=== PATIENT | male | born 1940 | race Caucasian/White ===

== ENCOUNTER 2017-03-29 11:07 | Observation (INO) ==
--- NOTE | 2017-03-29 11:17 | Emergency Department Note ---
Disposition Clinical Impression: Altered mental status Qualifiers: Altered mental status type: delirium Qualified Code(s): R41.0 - Disorientation , unspecified Disposition: Admitted As Inpatient Condition: Fair Time of Disposition: 16:52 General Adult HPI - General Chief complaint: ED Neuro Symptoms/Deficit Stated complaint: Slurred speech, L sided weakness Time Seen by Provider: 03/29/17 11:13 Source: EMS Mode of arrival: EMS Limitations: altered mental status Nursing Notes Reviewed: Yes Vital Signs Reviewed: Yes - History of Present Illness HPI Narrative: 76-year-old male with history of dementia who is baseline nonverbal to mild interaction, [facility] emergency department with the concerned about change in his mental status and swelling in his feet. The states that this started roughly one week ago and has progressively worsened. The patient's states she called EMS today after being told by PCP to come to the emergency department for swelling in his feet as well as the patient slumping over to his left side. EMS initially called a "stroke alert" due to patient's left-sided weakness. The states this has been ongoing for 3-4 days now. The patient's face has old and dried food on the left side. Apparently the takes care of her at home. The patient denies any specific complaints but again at baseline he is not interactive. The patient's denies any other new symptoms. No fevers that are noted. The patient has been eating at his baseline. The patient only takes one medication, olanzapine. Glucose in route was 179. Onset (ago): unknown Pain Scale: 0 Improves with: nothing Worsens with: nothing Associated symptoms: Reports: denies other symptoms Treatments Prior to Arrival: none - Related Data Home Medications Medication Instructions Recorded Confirmed OLANZapine [Olanzapine Odt] 10 mg PO BID 03/29/17 03/29/17 Allergies Allergy/AdvReac Type Severity Reaction Status Date / Time No Known Allergies Allergy Verified 03/29/17 12:40 Limitations: ROS unobtainable due to patients medical condition Past Medical History - Past Medical History Attestation: Yes The following information was validated with the patient. Source: patient Medical history: Reports: dementia Surgical history: Reports: no surgical history Psychiatric history: Reports: no psych history - Social History Smoking Status: Unknown if ever smoked Smokeless Tobacco Status: No Alcohol use: Reports: unknown Drug use: Reports: unknown Physical Exam Patient is altered in his mental status. He has dried food on the left side of his face. The patient is sitting up in the bed attempting to get out of the bed at this time. He is apparently at his baseline according to . The patient is sitting up and not truly interacting with anyone. He is answering some questions but is incomprehensible in his answers. - General Limitations: altered mental status General appearance: alert - Head Head exam: atraumatic, normocephalic, normal inspection - ENT ENT exam: normal exam, normal oropharynx, mucous membranes moist - Neck Neck exam: Present: normal inspection, full ROM, trachea midline - Respiratory Respiratory exam: Present: normal lung sounds bilaterally - Cardiovascular Cardiovascular exam: Present: regular rate, normal rhythm, normal heart sounds - Abdominal Exam Abdominal exam: Present: soft, Non-Tender. Absent: tenderness, distention, guarding, rebound, rigidity - Extremities Exam Extremities exam: Present: normal inspection, full ROM. Absent: tenderness, pedal edema - Back Exam Back exam: Present: normal inspection, full ROM. Absent: tenderness - Neurological Exam Neurological exam: Present: alert, CN II-XII intact - Expanded Neurological Exam Speech: Present: expressive aphasia Motor strength - LUE: 4/5 Motor strength - RUE: 5/5 Motor strength - LLE: 4/5 Motor strength - RLE: 5/5 Coma Scale Eye Opening: Spontaneous Coma Scale Motor Response: Obeys Commands Coma Scale Verbal Response: Incomprehensible Coma Scale Total: 12 - Skin Skin exam: Present: warm Course Vital Signs Temperature 97.9 F 03/29/17 11:09 Pulse Rate 68 03/29/17 11:09 Respiratory Rate 18 03/29/17 11:09 Blood Pressure 123/100 03/29/17 11:09 O2 Sat by Pulse Oximetry 98 03/29/17 11:09 Temperature 97.3 F L 03/29/17 16:35 Pulse Rate 70 03/29/17 16:35 Respiratory Rate 18 03/29/17 16:35 Blood Pressure 157/92 03/29/17 16:35 O2 Sat by Pulse Oximetry 93 03/29/17 16:35 Oxygen Delivery Oxygen Delivery Room Air Medical Decision Making - Lab Data Result diagrams: 03/29/17 11:32 03/29/17 11:32 Lab Results 03/29/17 03/29/1717 Range/Units 11:18 11:32 11:32 WBC 4.8 (4.3-11.1) K/mcL RBC 5.62 H (4.19-5.50) M/mcL Hgb 16.0 (12.9-16.9) g/dL Hct 48.7 (37.5-50.1) % MCV 86.7 (83.0-100.0) fL MCH 28.5 (28.0-33.3) pg MCHC 32.9 (31.6-35.5) g/dL RDW 13.4 (11.5-14.5) % Plt Count 254 (140-400) K/mcL MPV 8.8 L (9.4-12.4) fL Immature Gran % 0.2 (0-4) % Seg Neutrophils % 56.9 % Lymphocytes % 32.7 % Monocytes % 7.1 % Eosinophils % 2.3 % Basophils % 0.8 % Neutrophils # 2.7 (1.6-8.9) K/mcL Lymphocytes # 1.6 (0.6-4.6) K/mcL Monocytes # 0.3 (0.0-1.3) K/mcL Eosinophils # 0.1 (0.0-0.6) K/mcL Basophils # 0.0 (0.0-0.2) K/mcL Immature Plt Fraction 1.8 (1.1-6.1) % Sodium 144 (136-145) mEq/L Potassium 3.4 L (3.5-4.5) mEq/L Chloride 105 (98-109) mEq/L Carbon Dioxide 33 H (19-29) mEq/L BUN 10 (8-26) mg/dL Creatinine 1.12 (0.72-1.25) mg/dL Est GFR ( Amer) > 60 (> 60) Est GFR (Non-Af Amer) > 60 (> 60) BUN/Creatinine Ratio 9 (6-26) Glucose 91 (70-99) mg/dL POC Glucose 149 H (58-89) Calculated Osmolality 297 (280-300) Calcium 9.3 (8.6-10.8) mg/dL Total Bilirubin 0.9 (0.2-1.2) mg/dL AST 22 (5-34) Units/L ALT 12 (0-55) Units/L Alkaline Phosphatase 88 (38-126) Units/L Creatine Kinase 310 H (30-200) Units/L Troponin I (0-0.03) ng/mL Serum Total Protein 7.3 (6.0-8.3) g/dL Albumin 3.8 (3.5-5.0) g/dL Globulin 3.5 (2.4-3.5) g/dL Albumin/Globulin Ratio 1.1 (1.1-2.2) Urine Color (Yellow) Urine Clarity (Clear) Urine pH (5.0-8.0) pH Units Ur Specific [place] (1.010-1.025) Urine Protein (Neg-Trace) mg/dL Urine Glucose (UA) (Normal) mg/dL Urine Ketones (Negative) mg/dL Urine Blood (Negative) Urine Nitrite (Negative) Urine Bilirubin (Negative) Urine Urobilinogen (Normal) mg/dL Ur Leukocyte Esterase (Negative) Urine Microscopic RBC (0-3) per hpf Urine Microscopic WBC (0-3) per hpf Ur Squamous Epith Cells (None-Few) per lpf Urine Bacteria (None-Few) per hpf Hyaline Casts (None-Few) per lpf Ur Culture Indicated? (NO) 03/29/17 03/29/17 Range/Units 11:32 13:45 WBC (4.3-11.1) K/mcL RBC (4.19-5.50) M/mcL Hgb (12.9-16.9) g/dL Hct (37.5-50.1) % MCV (83.0-100.0) fL MCH (28.0-33.3) pg MCHC (31.6-35.5) g/dL RDW (11.5-14.5) % Plt Count (140-400) K/mcL MPV (9.4-12.4) fL Immature Gran % (0-4) % Seg Neutrophils % % Lymphocytes % % Monocytes % % Eosinophils % % Basophils % % Neutrophils # (1.6-8.9) K/mcL Lymphocytes # (0.6-4.6) K/mcL Monocytes # (0.0-1.3) K/mcL Eosinophils # (0.0-0.6) K/mcL Basophils # (0.0-0.2) K/mcL Immature Plt Fraction (1.1-6.1) % Sodium (136-145) mEq/L Potassium (3.5-4.5) mEq/L Chloride (98-109) mEq/L Carbon Dioxide (19-29) mEq/L BUN (8-26) mg/dL Creatinine (0.72-1.25) mg/dL Est GFR ( Amer) (> 60) Est GFR (Non-Af Amer) (> 60) BUN/Creatinine Ratio (6-26) Glucose (70-99) mg/dL POC Glucose (58-89) Calculated Osmolality (280-300) Calcium (8.6-10.8) mg/dL Total Bilirubin (0.2-1.2) mg/dL AST (5-34) Units/L ALT (0-55) Units/L Alkaline Phosphatase (38-126) Units/L Creatine Kinase (30-200) Units/L Troponin I 0.01 (0-0.03) ng/mL Serum Total Protein (6.0-8.3) g/dL Albumin (3.5-5.0) g/dL Globulin (2.4-3.5) g/dL Albumin/Globulin Ratio (1.1-2.2) Urine Color [place] A (Yellow) Urine Clarity Cloudy A (Clear) Urine pH 5.5 (5.0-8.0) pH Units Ur Specific [place] > 1.030 H (1.010-1.025) Urine Protein Trace (Neg-Trace) mg/dL Urine Glucose (UA) Normal (Normal) mg/dL Urine Ketones Trace H (Negative) mg/dL Urine Blood Negative (Negative) Urine Nitrite Negative (Negative) Urine Bilirubin Moderate H (Negative) Urine Urobilinogen Normal (Normal) mg/dL Ur Leukocyte Esterase Negative (Negative) Urine Microscopic RBC 0-3 (0-3) per hpf Urine Microscopic WBC 0-3 (0-3) per hpf Ur Squamous Epith Cells Many H (None-Few) per lpf Urine Bacteria None Seen (None-Few) per hpf Hyaline Casts None Seen (None-Few) per lpf Ur Culture Indicated? NO (NO) - EKG Data EKG #1 EKG attestation: Yes I reviewed and interpreted this EKG. EKG results narrative: Heart rate 63 bpm. IN interval 207 ms. QTc 425 ms. Normal axis. Normal sinus rhythm. No ST elevation or ST depression noted. EKG identical to EKG from 12/07/2015. No acute changes noted. Attestation Statement - Attestation Attestation: Patient was seen with resident physician. I reviewed the history, physical, assessment and plan, and agree with the findings. I also personally evaluated this patient and had [id number] time with this patient. 76-year-old male who has become increasingly nonverbal last several days. Patient has history of dementia and his is his caregiver. She says that he has not been acting as he usually has the last couple of days. Patient himself is unable to provide any history at all. He does follow some commands, but verbally he is unable to communicate. On examination vital signs food on his jimenez. Heart regular rhythm and rate. Lungs were clear. Abdomen soft and nontender. Extremities unremarkable. Neurologically patient is alert and follows commands to squeeze hands and also move feet. ED course will workup patient for neurologic problems as well as for sepsis. We will disposition according to findings of the workup. Workup was essentially unremarkable, head CT scan did not show acute abnormality, there are also no significant abnormalities on blood testing. Patient continued with current mental status long the ED vital signs are stable. Anticipate likely admission as I do not think his family can care for him at this time. Hospitalist was notified as to the need for admission and the patient was admitted to the hospital for further evaluation and treatment. Agree with the resident physician assessment plan.
[2017-03-29 11:40] LABS: Basophils % 0.8 %; Eosinophils # 0.1 K/mcL (0.0-0.6); Eosinophils % 2.3 %; Hematocrit 48.7 % (37.5-50.1); Immature Granulocytes % 0.2 % (0-4); Immature Platelets 1.8 % (1.1-6.1); Lymphocytes # 1.6 K/mcL (0.6-4.6); Lymphocytes % 32.7 %; Mean Corpuscular HGB Conc 32.9 g/dL (31.6-35.5); Mean Corpuscular Hemoglobin 28.5 pg (28.0-33.3); Mean Corpuscular Volume 86.7 fL (83.0-100.0); Mean Platelet Volume 8.8 fL (9.4-12.4); Monocytes # 0.3 K/mcL (0.0-1.3); Monocytes % 7.1 %; Neutrophils # 2.7 K/mcL (1.6-8.9); Platelet Count 254 K/mcL (140-400); Red Blood Count 5.62 M/mcL (4.19-5.50); Red Cell Distribution Width 13.4 % (11.5-14.5); Segmented Neutrophils % 56.9 %
[2017-03-29 11:52] LABS: Alanine Aminotransferase 12 Units/L (0-55); Albumin 3.8 g/dL (3.5-5.0); Albumin/Globulin Ratio 1.1 (1.1-2.2); Alkaline Phosphatase 88 Units/L (38-126); Aspartate Amino Transferase 22 Units/L (5-34); BUN/Creatinine Ratio 9 (6-26); Bilirubin,Total 0.9 mg/dL (0.2-1.2); Blood Urea Nitrogen 10 mg/dL (8-26); Calcium 9.3 mg/dL (8.6-10.8); Carbon Dioxide 33 mEq/L (19-29); Chloride 105 mEq/L (98-109); Creatine Kinase 310 Units/L (30-200); Globulin 3.5 g/dL (2.4-3.5); Glucose 91 mg/dL (70-99); Osmolality,Calculated 297 (280-300); Potassium 3.4 mEq/L (3.5-4.5); Sodium 144 mEq/L (136-145); Total Protein 7.3 g/dL (6.0-8.3); eGFR For African Americans > 60 (> 60); eGFR For Non-African Americans > 60 (> 60)
[2017-03-29 13:56] LABS: Bilirubin,Urine Moderate (Negative); Blood,Urine Negative (Negative); Clarity,Urine Cloudy (Clear); Color,Urine Orange (Yellow); Glucose,Urine (UA) Normal (Normal); Ketones,Urine Trace mg/dL (Negative); Leukocyte Esterase,Urine Negative (Negative); Nitrite,Urine Negative (Negative); PH,Urine 5.5 pH Units (5.0-8.0); Protein,Urine Trace mg/dL (Neg-Trace); Specific Gravity,Urine > 1.030 (1.010-1.025); Urobilinogen,Urine Normal (Normal)
[2017-03-29 14:00] LABS: Bacteria,Urine None Seen per hpf (None-Few); Hyaline Casts,Urine None Seen per lpf (None-Few); RBC,Urine 0-3 per hpf (0-3); Squamous Epithelial Cell,Urine Many per lpf (None-Few); WBC,Urine 0-3 per hpf (0-3)
--- NOTE | 2017-03-29 14:59 | Internal Med History&Physical ---
Date of Encounter: 03/29/17 Time of Encounter: 14:42 Assessment and Plan (1) Alzheimer's dementia with behavioral disturbance Current visit: No Status: Acute Patient is at baseline mental status with poor responses to verbal commands. He takes Olanzapine 10mg PO BID. Will continue home medication. He was brought to the emergency department with concerns of possible stroke symptoms which were resolved upon examination. EKG reviewed and demonstrated normal sinus rhythm, Brain CT without significant or acute findings. - Significant family hx of Alzheimer's dementia - Patient demonstrating signs of Parkinson's but without formal diagnosis. - Qualifiers: Alzheimer's disease onset: unspecified onset Qualified Code(s): G30.8 - Other Alzheimer's disease; F02.81 - Dementia in other diseases classified elsewhere with behavioral disturbance (2) Constipation Current visit: Yes Status: Acute Patient has been demonsrating symptoms of constipation over the past few days per family provided hx. - Will place on scheduled Senna. Qualifiers: Qualified Code(s): K59.00 - Constipation, unspecified (3) Hypokalemia Current visit: Yes Status: Acute Potassium 3.4. Patient without N/V/D or other identified causes for potassium loss. Plan: - 40meq Potassium PO once. (4) Hyperglycemia Current visit: Yes Status: Acute Glucose elevated x1 reading. Patient does not have a hx of DM. Plan: - follow glucose levels with am labs. If findings are significant consider treating with subcutaneous insulin. (5) DVT prophylaxis Current visit: No Status: Acute Lovenox 40mg SQ daily Internal Medicine - H&P: HPI Chief complaint: left sided weakness Admitted From: Emergency Dept Plans for Post Hospital Care: Home History of present illness: Mr. Ozuna is a 76 year old male with hx of Alzheimer dementia was brought to the emergency department with worsening of mental status, drooling and left sided leaning. All hx collected from and daughter do to patients mental status. His symptoms started this morning when he started drooling and demonstrated leaning to the left. Over the past few days he has been less compliant with verbal commands and demonstrated worsening of his mental status. At baseline he is not very verbal and poor to follow commands. He did not follow any commands with the addition of his symptoms that worried his and daughter and prompted them to have him seen in the emergency department. He continues to have his normal appetite, but has had some constipation and urinating once to twice per day. His also noticed some swelling in his feet this morning which was concerning to her. Upon examination today his says he is back to his baseline and his swelling has resolved. He is tolerating po intake. The family had no other concerns at this time. He does not have a primary care provider and receives his only medication from his psychiatrist. His says that overall he is pretty healthy. When discussing resuscitation status the patient would like full code at this time and defers all further interventions and care to the current advanced directive. Past Med Surg Social Fam HX - Past Medical History Medical history: dementia Psychiatric history: no psych history - Past Surgical History Surgical History: no surgical history - Social History Smoking Status: Unknown if ever smoked Smokeless Tobacco Status: No Alcohol use: unknown Drug use: unknown - Family History Sister Hx Family Cardiac Disorders: Yes Hx Family Endocrine Disorder: Yes (DM) Hx Family Neurologic Disorders: Yes (alz) Brother Hx Family Cardiac Disorders: Yes Internal Medicine - H&P: Meds OLANZapine [Olanzapine Odt] 10 mg PO BID 03/29/17 [History] Allergies No Known Allergies Allergy (Verified 03/29/17 12:40) ROS unobtainable: due to mental status All Systems PM: A 10-system review of systems was performed and is negative for pertinent findings except as documented above in the HPI. - Constitutional Vitals: Temp Pulse Resp BP Pulse Ox 97.9 F 68 18 123/100 98 03/29/17 11:09 03/29/17 11:09 03/29/17 11:09 03/29/17 11:09 03/29/17 11:09 General appearance: Present: A&O X 0 - Head Head exam: Present: atraumatic, normocephalic - Eye Eye exam: Present: PERRL, conjuntiva pink, sclera anicteric Pupils: Present: PERRL - ENT ENT exam: Present: mucous membranes dry - Neck Neck exam general surgery: Present: supple, trachea midline. Absent: lymphadenopathy - Respiratory Respiratory exam: Present: CTAB. Absent: accessory muscle use, rales, rhonchi, wheezes - Cardiovascular Cardiovascular exam: Present: RRR, +S1, +S2. Absent: diastolic murmur, gallop, rubs, systolic murmur - GI/Abdominal GI/Abdominal exam: Present: normal bowel sounds, soft, no peritoneal signs. Absent: distended, tenderness - Extremities Exam Extremities exam: Present: warm, radial pulses palpable and symetrical. Absent : calf tenderness, cyanotic, pedal edema - Neurological Exam Neurological exam: Present: alert, no focal deficits, strengths equal and symetr throughout. Absent: pronater drift, facial droop Additional comments: Patient has repetitive movements of the lower jaw and bilateral upper extremities. negative for cogwheel rigidity. - Psychiatric Psychiatric exam: Present: flat affect - Skin Skin exam: Present: dry, intact Internal Med - H&P Results - Labs CBC & Chem 7: 03/29/17 11:32 03/29/17 11:32 Labs: Short CBC 03/29/17 Range/Units 11:32 WBC 4.8 (4.3-11.1) K/mcL Hgb 16.0 (12.9-16.9) g/dL Hct 48.7 (37.5-50.1) % Plt Count 254 (140-400) K/mcL Neutrophils # 2.7 (1.6-8.9) K/mcL BMP 03/29/17 11:32 Sodium 144 Potassium 3.4 L Chloride 105 Carbon Dioxide 33 H BUN 10 Creatinine 1.12 Glucose 91 Calcium 9.3 Cardiac Enzymes 03/29/17 Range/Units 11:32 Troponin I 0.01 (0-0.03) ng/mL Liver Function 03/29/17 Range/Units 11:32 Total Bilirubin 0.9 (0.2-1.2) mg/dL AST 22 (5-34) Units/L ALT 12 (0-55) Units/L Alkaline Phosphatase 88 (38-126) Units/L Albumin 3.8 (3.5-5.0) g/dL Urine 03/29/17 Range/Units 13:45 Urine Color [place] A (Yellow) Urine Clarity Cloudy A (Clear) Urine pH 5.5 (5.0-8.0) pH Units Ur Specific [place] > 1.030 H (1.010-1.025) Urine Protein Trace (Neg-Trace) mg/dL Urine Glucose (UA) Normal (Normal) mg/dL - Impressions ITS Impressions Chest X-Ray 03/29/17 11:13 IMPRESSION: 1. Lower lung volumes with increased bibasilar atelectasis. D/ / Juan Alberto Mendoza MD / Juan Alberto Mendoza MD Interpreting Provider: Juan Alberto Mendoza MD Head CT 03/29/17 11:13 IMPRESSION: 1. No acute intracranial abnormality. 2. Mild global atrophy. D/ / 03/29/2017 12:02:23 Power Palmer MD / haile Interpreting Provider: Power Palmer MD
--- NOTE | 2017-03-29 15:05 | Event Note ---
Date of Encounter: 03/29/17 Time of Encounter: 15:05 Patient seen and examined with medical assembly. Agree with assessment and plan
[2017-03-29] MEDS ORDERED: Ondansetron ODT 4 MG TAB.RAPDIS SL PRN (15:34)
[2017-03-29] MEDS ORDERED: Naloxone 0.4 MG/ML INJ IVP PRN (15:34)
[2017-03-29] MEDS ORDERED: Acetaminophen 325 MG TABLET PO PRN (15:34)
[2017-03-29] MEDS: Sennosides/Docusate Sodium TABLET PO SCH (21:53)
[2017-03-29] MEDS: OLANZapine 10 MG TAB.RAPDIS PO SCH (21:53)
[2017-03-30] MEDS: *HR* Enoxaparin 40 MG/0.4 ML SYRINGE SQ SCH (05:30)
[2017-03-30 06:15] LABS: Basophils % 0.8 %; Eosinophils # 0.2 K/mcL (0.0-0.6); Eosinophils % 3.5 %; Hematocrit 46.9 % (37.5-50.1); Hemoglobin 15.4 g/dL (12.9-16.9); Immature Granulocytes % 0.2 % (0-4); Lymphocytes # 1.9 K/mcL (0.6-4.6); Mean Corpuscular HGB Conc 32.8 g/dL (31.6-35.5); Mean Corpuscular Hemoglobin 27.9 pg (28.0-33.3); Mean Corpuscular Volume 85.1 fL (83.0-100.0); Mean Platelet Volume 8.8 fL (9.4-12.4); Monocytes # 0.4 K/mcL (0.0-1.3); Monocytes % 7.8 %; Neutrophils # 2.7 K/mcL (1.6-8.9); Platelet Count 216 K/mcL (140-400); Red Blood Count 5.51 M/mcL (4.19-5.50); Red Cell Distribution Width 13.2 % (11.5-14.5); Segmented Neutrophils % 51.7 %
[2017-03-30 06:26] LABS: BUN/Creatinine Ratio 12 (6-26); Blood Urea Nitrogen 10 mg/dL (8-26); Calcium 8.9 mg/dL (8.6-10.8); Carbon Dioxide 31 mEq/L (19-29); Chloride 106 mEq/L (98-109); Glucose 94 mg/dL (70-99); Osmolality,Calculated 295 (280-300); Potassium 3.8 mEq/L (3.5-4.5); Sodium 143 mEq/L (136-145); eGFR For African Americans > 60 (> 60); eGFR For Non-African Americans > 60 (> 60)
[2017-03-30] MEDS: OLANZapine 10 MG TAB.RAPDIS PO SCH ×3 (09:28→20:29)
[2017-03-30] MEDS: Sennosides/Docusate Sodium TABLET PO SCH ×3 (09:28→20:29)
--- NOTE | 2017-03-30 13:45 | Internal Med Progress Note ---
Date of Encounter: 03/30/17 Time of Encounter: 13:42 - Assessment and plan (1) Altered mental status Current Visit: Yes Status: Chronic Assessment and plan: as per the family, for barbara last week, his head was drooping down, he was drooling , unable to sit upright and leaning to one side and speech is slurred. At the time of the bedside evaluation this morning, the family reports that he is back to his baseline, CT head done at ED does not show any signs of acute stroke. No other focal deficits at this time Patient has baseline Alzheimer's dementia, seen by neurology last year he follows with psychiatry for symptomatic behavioral treatment. Qualifiers: Altered mental status type: delirium Qualified Code(s): R41.0 - Disorientation, unspecified (2) Alzheimer's dementia with behavioral disturbance Current Visit: No Status: Acute Assessment and plan: HE was seen by neurology 2015 and was told that he has developing alzhemier's dementia. his treatment is basically symptomatic depending on behavioral problems he follows with psych outside, he has been on zyprexa 5 mg daily which was recently increased to 10mg bid. will allow psych to adjust his meds for his psychosis. will need a PCP arranged before DC. family is adamant about not sending the patient to NH or rehab. Qualifiers: Alzheimer's disease onset: unspecified onset Qualified Code(s): G30.8 - Other Alzheimer's disease; F02.81 - Dementia in other diseases classified elsewhere with behavioral disturbance - Subjective Interval history: Patient admitted for bilateral lower leg swelling and signs concerning for CVA. Seen at the bedside, patient pleasantly demented at baseline, from home, taken care of by the and the daughter. as per the family, he appears to be at his baseline now and does not have any focal defecits - Constitutional Vitals: Temp Pulse Resp BP Pulse Ox 97.6 F 65 18 115/71 93 03/30/17 11:48 03/30/17 11:48 03/30/17 11:48 03/30/17 11:48 03/30/17 11:48 General appearance: Present: A&O X 0, disheveled Exam: opens eyes, non verbal and does not follow commands. - Head Head exam: Present: atraumatic, normocephalic - Eye Eye exam: Present: PERRL, conjuntiva pink, sclera anicteric Pupils: Present: PERRL - ENT ENT exam: Present: mucous membranes dry - Neck Neck exam general surgery: Present: supple, trachea midline. Absent: lymphadenopathy - Respiratory Respiratory exam: Present: CTAB. Absent: accessory muscle use, rales, rhonchi, wheezes - Cardiovascular Cardiovascular exam: Present: RRR, +S1, +S2. Absent: diastolic murmur, gallop, rubs, systolic murmur - GI/Abdominal GI/Abdominal exam: Present: normal bowel sounds, soft, no peritoneal signs. Absent: distended, tenderness - Extremities Exam Extremities exam: Present: warm, radial pulses palpable and symetrical. Absent : calf tenderness, cyanotic, pedal edema - Neurological Exam Neurological exam: Present: alert, no focal deficits, strengths equal and symetr throughout. Absent: pronater drift, facial droop Additional comments: Patient has repetitive movements of the lower jaw and bilateral upper extremities. negative for cogwheel rigidity. - Psychiatric Psychiatric exam: Present: flat affect - Skin Skin exam: Present: dry, intact Internal Medicine: Result - Labs CBC & Chem 7: 03/30/17 05:54 03/30/17 05:54 Labs: Short CBC 03/30/17 Range/Units 05:54 WBC 5.2 (4.3-11.1) K/mcL Hgb 15.4 (12.9-16.9) g/dL Hct 46.9 (37.5-50.1) % Plt Count 216 (140-400) K/mcL Neutrophils # 2.7 (1.6-8.9) K/mcL BMP 03/30/17 05:54 Sodium 143 Potassium 3.8 Chloride 106 Carbon Dioxide 31 H BUN 10 Creatinine 0.86 Glucose 94 Calcium 8.9 Consult Discharge Plan - Plan Referrals: NO,PCP [Primary Care Provider] -
[2017-03-31] MEDS: *HR* Enoxaparin 40 MG/0.4 ML SYRINGE SQ SCH (05:24)
[2017-03-31] MEDS: OLANZapine 10 MG TAB.RAPDIS PO SCH ×2 (09:46→20:41)
[2017-03-31] MEDS: Sennosides/Docusate Sodium TABLET PO SCH ×2 (09:47→20:41)
[2017-03-31] MEDS: 0.9 % Sodium Chloride 1,000 ML IVC SCH (14:11)
--- NOTE | 2017-03-31 15:19 | Internal Med Progress Note ---
Date of Encounter: 03/31/17 Time of Encounter: 15:16 - Assessment and plan (1) Altered mental status Current Visit: Yes Status: Chronic Assessment and plan: as per the family, for barbara last week, his head was drooping down, he was drooling , unable to sit upright and leaning to one side and speech is slurred. At the time of the bedside evaluation this morning, the family reports that he is back to his baseline, CT head done at ED does not show any signs of acute stroke. No other focal deficits at this time Patient has baseline Alzheimer's dementia, seen by neurology last year he follows with psychiatry for symptomatic behavioral treatment. he was heber zyprexa 10mg bid,suspect his symptoms from possible high dose of zyprexa, will lower to 5mg bid today and observe. tried reaching Joi Espinoza who is his psychiatrist without success. Qualifiers: Altered mental status type: delirium Qualified Code(s): R41.0 - Disorientation, unspecified (2) Alzheimer's dementia with behavioral disturbance Current Visit: No Status: Acute Assessment and plan: HE was seen by neurology 2016 and was told that he has developing alzhemier's dementia. his treatment is basically symptomatic depending on behavioral problems he follows with psych outside, he has been on zyprexa 10mg bid. will dcerease his zyprexa to 5mg bid at this time. will need a PCP arranged before DC. family is adamant about not sending the patient to NH or rehab. Qualifiers: Alzheimer's disease onset: unspecified onset Qualified Code(s): G30.8 - Other Alzheimer's disease; F02.81 - Dementia in other diseases classified elsewhere with behavioral disturbance - Subjective Interval history: Patient admitted for bilateral lower leg swelling and signs concerning for CVA. was noted to be very drowsy in the morning. much aawake now and ate his lunch. - Constitutional Vitals: Temp Pulse Resp BP Pulse Ox 98.2 F 63 17 126/69 96 03/31/17 11:26 03/31/17 11:26 03/31/17 11:26 03/31/17 11:26 03/31/17 11:26 General appearance: Present: A&O X 0, disheveled Exam: Exam: opens eyes, non verbal and does not follow commands. - Head Head exam: Present: atraumatic, normocephalic - Eye Eye exam: Present: PERRL, conjuntiva pink, sclera anicteric Pupils: Present: PERRL - ENT ENT exam: Present: mucous membranes dry - Neck Neck exam general surgery: Present: supple, trachea midline. Absent: lymphadenopathy - Respiratory Respiratory exam: Present: CTAB. Absent: accessory muscle use, rales, rhonchi, wheezes - Cardiovascular Cardiovascular exam: Present: RRR, +S1, +S2. Absent: diastolic murmur, gallop, rubs, systolic murmur - GI/Abdominal GI/Abdominal exam: Present: normal bowel sounds, soft, no peritoneal signs. Absent: distended, tenderness - Extremities Exam Extremities exam: Present: warm, radial pulses palpable and symetrical. Absent : calf tenderness, cyanotic, pedal edema - Neurological Exam Neurological exam: Present: alert, no focal deficits, strengths equal and symetr throughout. Absent: pronater drift, facial droop Additional comments: Patient has repetitive movements of the lower jaw and bilateral upper extremities. negative for cogwheel rigidity. - Psychiatric Psychiatric exam: Present: flat affect - Skin Skin exam: Present: dry, intact Internal Medicine: Result - Labs CBC & Chem 7: 03/30/17 05:54 03/30/17 05:54 Consult Discharge Plan - Plan Referrals: Sebastian Nelson DO [Non-Partnered Physician] - (Patient will call after discharge, office will then set him up as a new patient and a hospital f/u. Family aware of arrangement. Thank you)
--- NOTE | 2017-03-31 15:28 | Electrocardiograph Report ---
[facility] Test Date: 2017-03-29 Pat Name: Jose Ozuna Department: 105 Room: 3A63 Gender: M Adaptive Physical Education Specialist: : 1940 Requested By: Solomon Tuttle Order Number: [id number] Reading MD: Dave Marte MD Measurements Intervals [place] Rate: 63 P: 68 [place]: 207 QRS: -58 QRSD: 94 T: 18 QT: 417 QTc: 425 Interpretive Statements SINUS RHYTHM PATTERN CONSISTENT WITH PULMONARY DISEASE LEFT ANTERIOR FASCICULAR BLOCK [QRS AXIS <= -45, QR IN I, RS IN II] Electronically Signed On 03-31-2017 15:27:19 EDT by Dave Marte MD
[2017-04-01] MEDS: 0.9 % Sodium Chloride 1,000 ML IVC SCH ×2 (01:17→10:37)
[2017-04-01] MEDS: *HR* Enoxaparin 40 MG/0.4 ML SYRINGE SQ SCH (06:37)
[2017-04-01 09:03] LABS: Basophils % 0.8 %; Eosinophils # 0.2 K/mcL (0.0-0.6); Eosinophils % 3.1 %; Hematocrit 45.9 % (37.5-50.1); Hemoglobin 15.2 g/dL (12.9-16.9); Immature Granulocytes % 0.4 % (0-4); Lymphocytes # 1.4 K/mcL (0.6-4.6); Mean Corpuscular HGB Conc 33.1 g/dL (31.6-35.5); Mean Corpuscular Hemoglobin 28.6 pg (28.0-33.3); Mean Corpuscular Volume 86.4 fL (83.0-100.0); Monocytes # 0.4 K/mcL (0.0-1.3); Monocytes % 7.3 %; Neutrophils # 2.9 K/mcL (1.6-8.9); Platelet Count 183 K/mcL (140-400); Red Blood Count 5.31 M/mcL (4.19-5.50); Red Cell Distribution Width 13.1 % (11.5-14.5); Segmented Neutrophils % 59.4 %
[2017-04-01 09:10] LABS: BUN/Creatinine Ratio 11 (6-26); Blood Urea Nitrogen 8 mg/dL (8-26); Calcium 8.3 mg/dL (8.6-10.8); Carbon Dioxide 23 mEq/L (19-29); Chloride 110 mEq/L (98-109); Glucose 88 mg/dL (70-99); Osmolality,Calculated 286 (280-300); Potassium 3.9 mEq/L (3.5-4.5); Sodium 139 mEq/L (136-145); eGFR For African Americans > 60 (> 60); eGFR For Non-African Americans > 60 (> 60)
[2017-04-01 10:34] VITALS: BP 119/81
[2017-04-01] MEDS: Sennosides/Docusate Sodium TABLET PO SCH (10:37)
[2017-04-01] MEDS: OLANZapine 10 MG TAB.RAPDIS PO SCH (10:37)
--- NOTE | 2017-04-01 11:23 | Discharge Summary ---
Date of Encounter: 04/01/17 Time of Encounter: 11:20 - Discharge Diagnosis (1) Altered mental status Priority: Primary Status: Chronic Qualifiers: Altered mental status type: delirium Qualified Code(s): R41.0 - Disorientation, unspecified (2) Alzheimer's dementia with behavioral disturbance Priority: Secondary Status: Acute Qualifiers: Alzheimer's disease onset: unspecified onset Qualified Code(s): G30.8 - Other Alzheimer's disease; F02.81 - Dementia in other diseases classified elsewhere with behavioral disturbance - Discharge Medications Prescriptions: OLANZapine [Zyprexa Zydis] 5 mg PO BID #60 tab.rapdis Sennosides/Docusate Sodium [Senna Plus] 1 each PO DAILY PRN #30 tablet PRN Reason: Constipation Home Medications: OLANZapine [Zyprexa Zydis] 5 mg PO BID #60 tab.rapdis 04/01/17 [Rx] Sennosides/Docusate Sodium [Senna Plus] 1 each PO DAILY PRN #30 tablet 04/01/17 [Rx] Allergies/Adverse Reactions: Allergies No Known Allergies Allergy (Verified 03/29/17 12:40) Date of admission: 03/29/17 15:16 Primary care physician: PCP NO Consults: 03/30/17 09:09 Consult to [employer] Apprentice [CONS] Routine Reason for SW Consult: discharge planning; baseline dementia 03/30/17 09:48 Consult to Physical Therapy [CONS] Routine Comment: Evaluate, develop and implement POC Reason for Consult: eval and treat OT [Consult to Occupational Therapy] [CONS] Routine Comment: Evaluate, develop and implement POC Reason for Consult: eval and treat Discharging clinician: Kevin Lake Anticipated date of discharge: 04/01/17 - Patient Status Disposition: Home, Self-Care Condition: Fair Functional capacity at discharge: bed bound Overall status at discharge: patient is back to baseline - Discharge Instructions Follow Up With: Sebastian Nelson DO [Non-Partnered Physician] - (Patient will call after discharge, office will then set him up as a new patient and a hospital f/u. Family aware of arrangement. Thank you) - Diet and Activity Activity: as per physical therapy Diet: advance to your usual diet Interval History: Mr. Ozuna is a 76 year old male with hx of Alzheimer dementia was brought to the emergency department with worsening of mental status, drooling and left sided leaning. All hx collected from and daughter do to patients mental status. Over the past few days he has been less compliant with verbal commands and demonstrated worsening of his mental status. At baseline he is not very verbal and poor to follow commands. His also noticed some swelling in his feet this morning which was concerning to her. He does not have a primary care provider and receives his only medication from his psychiatrist. His says that overall he is pretty healthy. When discussing resuscitation status the patient would like full code at this time and defers all further interventions and care to the current advanced directive. He was admitted for further management, upon reviewing his medications he was told to take 10 mg of Zyprexa twice a day recently. His symptoms could probably be from medication side effect from Zyprexa. CT head was done, does not show any signs of stroke. Zyprexa was changed from 10 mg twice a day to 5 mg twice a day. Patient appears to be much more awake and interactive today along with the at the bedside. It was attempted to call the psychiatrist to inform about the dose change without any success. Patient is being discharged today in stable condition and will give prescription and instructions for Zyprexa 5 mg twice a day from now on. Patient will follow-up with his psychiatrist as outpatient. It was also arranged for the patient to get a primary care physician appointment on discharge. Hospital course: Mr. zOuna is a 76 year old male - Time Spent with Patient Total time spent providing and/or coordinating discharge services: - Constitutional Vitals: Temp Pulse Resp BP Pulse Ox 97.6 F 58 15 119/81 95 04/01/17 10:29 04/01/17 10:29 04/01/17 10:29 04/01/17 10:29 04/01/17 10:29 General appearance: Present: A&O X 0, disheveled Exam: Head Head exam: Present: atraumatic, normocephalic - Eye Eye exam: Present: PERRL, conjuntiva pink, sclera anicteric Pupils: Present: PERRL - ENT ENT exam: Present: mucous membranes dry - Neck Neck exam general surgery: Present: supple, trachea midline. Absent: lymphadenopathy - Respiratory Respiratory exam: Present: CTAB. Absent: accessory muscle use, rales, rhonchi, wheezes - Cardiovascular Cardiovascular exam: Present: RRR, +S1, +S2. Absent: diastolic murmur, gallop, rubs, systolic murmur - GI/Abdominal GI/Abdominal exam: Present: normal bowel sounds, soft, no peritoneal signs. Absent: distended, tenderness - Extremities Exam Extremities exam: Present: warm, radial pulses palpable and symetrical. Absent : calf tenderness, cyanotic, pedal edema - Neurological Exam Neurological exam: Present: alert, no focal deficits, strengths equal and symetr throughout. Absent: pronater drift, facial droop Additional comments: Patient has repetitive movements of the lower jaw and bilateral upper extremities. negative for cogwheel rigidity. - Psychiatric Psychiatric exam: Present: flat affect - Skin Skin exam: Present: dry, intact
== END 2017-04-01 14:22 | disposition home or self-care (01) ==
LOC: 3ANU 11:07 → EMEROO 11:07 → 3ANU 15:37
PROVIDERS: ADMIT Hospitalist; ATTEND Internal Medicine Endocrinology, Diabetes & Metabolism

== ENCOUNTER 2018-09-01 20:08 | Inpatient (IN) ==
[2018-09-01] MEDS ORDERED: Piperacillin/Tazobactam 3.375 GM in Water for inj. (sterile) 20 ML 20 ML IVP ONE (20:27)
[2018-09-01] MEDS ORDERED: Ipratropium/Albuterol Neb 3 ML IH ONE (20:27)
[2018-09-01] MEDS ORDERED: methylPREDNISolone 125 MG/2 ML VIAL IVP ONE (20:27)
--- NOTE | 2018-09-01 20:29 | Emergency Department Note ---
Disposition Clinical Impression: Fecal impaction, Respiratory distress, Hypoxia, Elevated troponin, Hypernatremia, Hyperchloremia, Dehydration, JASON (acute kidney injury) UTI (urinary tract infection) Qualifiers: Urinary tract infection type: site unspecified Hematuria presence: without hematuria Qualified Code(s): N39.0 - Urinary tract infection, site not specified Pneumonia Qualifiers: Pneumonia type: due to unspecified organism Laterality: unspecified laterality Lung location: unspecified part of lung Qualified Code(s): J18.9 - Pneumonia, unspecified organism Sepsis Qualifiers: Sepsis type: sepsis due to unspecified organism Qualified Code(s): A41.9 - Sepsis, unspecified organism Disposition: Admitted As Inpatient Condition: Serious Time of Disposition: 23:53 General Adult HPI - General Chief complaint: ED Shortness of Breath/Dyspnea Stated complaint: dyspnea, AMS Time Seen by Provider: 09/01/18 20:14 Source: patient Mode of arrival: ambulatory Limitations: no limitations Nursing Notes Reviewed: Yes Vital Signs Reviewed: Yes - History of Present Illness HPI Narrative: Patient is a 78-year-old male with past medical history of dementia. He is brought in via EMS due to concern for altered mental status, lethargy, fever, productive cough. EMS states that the patient had an oxygen saturation in the 70s on room air. Family states that he does not have any history of any COPD, does not wear oxygen at home. They state that over the past few days, he has had productive cough, congestion, phlegm, fevers. Over the past day, he has become increasingly lethargic. Today, he will not answer any questions or following any commands for the family. They also note that the patient has had diarrhea but no quite any chest pain, abdominal pain. The patient himself is not able to answer any questions currently. - Related Data Previous Rx's Medication Instructions Recorded OLANZapine [Zyprexa Zydis] 5 mg PO BID #60 tab.rapdis 04/01/17 Sennosides/Docusate Sodium [Senna 1 each PO DAILY PRN #30 tablet 04/01/17 Plus] Allergies Allergy/AdvReac Type Severity Reaction Status Date / Time No Known Allergies Allergy Verified 03/29/17 12:40 All systems ED: reviewed and negative except as stated. Constitutional: Reports: fever Cardiovascular: Denies: chest pain Respiratory: Reports: cough, dyspnea, sputum production Gastrointestinal: Reports: diarrhea. Denies: abdominal pain, nausea, vomiting Genitourinary: Denies: urgency, dysuria Neurological: Denies: headache, weakness, numbness, paresthesias Past Medical History - Past Medical History Attestation: Yes The following information was validated with the patient. Source: patient Medical history: Reports: dementia, other Surgical history: Reports: no surgical history Psychiatric history: Reports: no psych history - Social History Smoking Status: Unknown if ever smoked Smokeless Tobacco Status: No Alcohol use: Reports: unknown Drug use: Reports: unknown Physical Exam - General Limitations: other (Cachectic male, listless, only following some commands, current nonrebreather in place) - Head Head exam: atraumatic, normocephalic, normal inspection - Eye Eye exam: Present: normal appearance, PERRL, EOMI - ENT ENT exam: mucous membranes dry, other (Eyes sunken in) - Neck Neck exam: Present: normal inspection, full ROM, trachea midline - Chest Chest inspection: Present: normal inspection, symmetric chest wall rise - Respiratory Respiratory exam: Present: other (Decreased aeration throughout. Unable to hear any overt wheezes or rhonchi. Shallow breathing.) - Cardiovascular Cardiovascular exam: Present: normal rhythm, tachycardia, normal heart sounds - Abdominal Exam Abdominal exam: Present: soft, Non-Tender. Absent: tenderness, distention, guarding, rebound, rigidity - Extremities Exam Extremities exam: Present: full ROM, other (muscle wasting of extremities). Absent: tenderness, pedal edema - Neurological Exam Neurological exam: Present: alert, other (Oriented to person only. Listless. We will squeeze my hands, will move feet bilaterally. Otherwise, will not answer any other review of system questions. Will not track with his eyes. ) - Expanded Neurological Exam Patient oriented to: Present: person Coma Scale Eye Opening: Spontaneous Coma Scale Motor Response: Localizes to Pain Coma Scale Verbal Response: Inappropriate Coma Scale Total: 12 - Psychiatric Psychiatric exam: Present: normal affect, normal mood - Skin Skin exam: Present: warm, dry, intact, normal color Course Course Narrative: Patient was tachycardic, febrile on presentation. Decreased aeration throughout with a recent history of sputum production, cough. MS states that he was in the 70s on oxygen saturation on room air when he picked him up. Currently on a nonrebreather. I discussed CODE STATUS with . She states that patient would not want CPR or intubation if he was to decompensate and would not want ventilator support. states that she is power of tax associate attorney. I discussed this several times with her. Daughter was present for this conversation. Nursing staff was also present for this conversation. Patient was given rectal Tylenol, placed on BiPAP, given 2 L normal saline bolus, sepsis labs ordered include a cultures and lactic. Chest x-ray ordered. We will also obtain CT the head once patient is stabilized due to change in mental status. 23:19 lab workup shows hyper natremia, hyperchloremia, acute kidney injury, elevated troponin level (patient given aspirin 300 rectal). Lactic within normal limits. chest x-ray shows left retrocardiac pneumonia. Head CT was negative for any acute intracranial abnormality. There was mention of possible large bowel distention on chest x-ray. CT abdomen and pelvis was ordered for further evaluation., currently pending. 23:45 CT abdomen and pelvis shows large amount of stool in the rectum. Rectal disimpaction was attempted but stool is not reachable. Enema ordered. Patient was admitted to hospitalist for further care. Remained stable on BiPAP at this time. Patient's has signed DNR CC arrest papers and has localized that she also wants patient to be DNI as well. This is been placed in his chart and order has been placed. Chest X-Ray 09/01/18 20:24 IMPRESSION: Left retrocardiac opacity, likely pneumonia. Underlying mass cannot be excluded and follow-up to complete clearing is recommended. Moderate to marked distention of large bowel in the upper abdomen by gas and stool. While this likely represents constipation/fecal impaction, a low large bowel obstruction is not excluded. Follow-up flat and upright abdominal study would be helpful. D/ / Rodney Calvillo MD / Rodney Calvillo MD Interpreting Provider: Rodney Calvillo MD Head CT 09/01/18 20:39 IMPRESSION: No acute intracranial abnormality. Cerumen within the external auditory canals bilaterally. Direct visualization recommended, as these may be occlusive. D/ / Tejinder Herring MD / Tejinder Herring MD Interpreting Provider: Tejinder Herring MD Abdomen/Pelvis CT 09/01/18 22:05 IMPRESSION: Very large amount of stool within the rectum, compatible with rectal impaction. Within the distal aspect of the descending colon, there is focal, mildly eccentric mural thickening with surrounding fat stranding. That could be artifactual secondary to incomplete distention, but acute diverticulitis and even a colonic mass are considered as well. After resolution of acute symptoms, follow-up scan or direct visualization is recommended. There is gaseous dilation of the large bowel more proximally, with a moderate to large amount of stool, most suggestive of ileus and constipation. No evidence of small bowel obstruction. Dense left lower lobe consolidation, with patchy consolidation also identified within the lingula and right lower lobe, compatible with multifocal pneumonia or aspiration. That should be followed to resolution. D/ / Tejinder Herring MD / Tejinder Herring MD Interpreting Provider: Tejinder Herring MD Chest X-Ray 09/01/18 20:24 IMPRESSION: Left retrocardiac opacity, likely pneumonia. Underlying mass cannot be excluded and follow-up to complete clearing is recommended. Moderate to marked distention of large bowel in the upper abdomen by gas and stool. While this likely represents constipation/fecal impaction, a low large bowel obstruction is not excluded. Follow-up flat and upright abdominal study would be helpful. D/ / Rodney Calvillo MD / Rodney Calvillo MD Interpreting Provider: Rodney Calvillo MD Head CT 09/01/18 20:39 IMPRESSION: No acute intracranial abnormality. Cerumen within the external auditory canals bilaterally. Direct visualization recommended, as these may be occlusive. D/ / Tejinder Herring MD / Tejinder Herring MD Interpreting Provider: Tejinder Herring MD Vital Signs Temperature 104.5 F H 09/01/18 20:33 Pulse Rate 119 09/01/18 20:33 Respiratory Rate 24 09/01/18 20:33 Blood Pressure 167/119 09/01/18 20:33 O2 Sat by Pulse Oximetry 100 09/01/18 20:33 Temperature 104.5 F H 09/01/18 20:33 Pulse Rate 119 09/01/18 20:33 Respiratory Rate 25 09/01/18 21:49 Blood Pressure 167/119 09/01/18 20:33 O2 Sat by Pulse Oximetry 97 09/01/18 21:49 Oxygen Delivery Oxygen Delivery Non Rebreather Mask Medical Decision Making - MDM Narrative Medical decision making narrative: Patient was tachycardic, febrile on presentation. Decreased aeration throughout with a recent history of sputum production, cough. MS states that he was in the 70s on oxygen saturation on room air when he picked him up. Currently on a nonrebreather. I discussed CODE STATUS with . She states that patient would not want CPR or intubation if he was to decompensate and would not want ventilator support. states that she is power of tax associate attorney. I discussed this several times with her. Daughter was present for this conversation. Nursing staff was also present for this conversation. Patient was given rectal Tylenol, placed on BiPAP, given 2 L normal saline bolus, sepsis labs ordered include a cultures and lactic. Chest x-ray ordered. We will also obtain CT the head once patient is stabilized due to change in mental status. 23:19 lab workup shows hyper natremia, hyperchloremia, acute kidney injury, tip vated troponin level (patient given aspirin 300 rectal). Lactic within normal limits. chest x-ray shows left retrocardiac pneumonia. Head CT was negative for any acute intracranial abnormality. There was mention of possible large bowel distention on chest x-ray. CT abdomen and pelvis was ordered for further evaluation., currently pending. 23:45 CT abdomen and pelvis shows large amount of stool in the rectum. Rectal disimpaction was attempted but stool is not reachable. Enema ordered. Patient was admitted to hospitalist for further care. Remained stable on BiPAP at this time. Patient's has signed DNR CC arrest papers and has localized that she also wants patient to be DNI as well. This is been placed in his chart and order has been placed. - Medical Records Medical records reviewed: Yes I reviewed the patient's medical records. - Lab Data Lab results reviewed: Yes I reviewed the patient's lab results. Result diagrams: 09/01/18 21:28 09/01/18 21:28 Lab Results 09/01/18 09/01/18 09/01/18 Range/Units 20:42 20:56 21:28 WBC 5.2 (4.3-11.1) K/mcL RBC 5.11 (4.19-5.50) M/mcL Hgb 15.0 (12.9-16.9) g/dL Hct 46.1 (37.5-50.1) % MCV 90.2 (83.0-100.0) fL MCH 29.4 (28.0-33.3) pg MCHC 32.5 (31.6-35.5) g/dL RDW 14.6 H (11.5-14.5) % Plt Count 171 (140-400) K/mcL MPV 11.0 (9.4-12.4) fL Immature Gran % 0.6 (0-4) % Seg Neutrophils % 88.1 % Lymphocytes % 7.6 % Monocytes % 3.3 % Eosinophils % 0.0 % Basophils % 0.4 % Neutrophils # 4.6 (1.6-8.9) K/mcL Lymphocytes # 0.4 L (0.6-4.6) K/mcL Monocytes # 0.2 (0.0-1.3) K/mcL Eosinophils # 0.0 (0.0-0.6) K/mcL Basophils # 0.0 (0.0-0.2) K/mcL PT (9.4-12.1) Seconds INR APTT (26.0-36.0) Seconds Sample Site R Brach ABG pH 7.47 H (7.32-7.45) pH Units ABG pCO2 40 (35-45) mmHg ABG pO2 70 L (85-104) mmHg ABG HCO3 29 H (21-27) mEq/L ABG Total CO2 30 H (20-26) mEq/L ABG O2 Saturation 95 (95-98) % ABG Base Excess 5 H (-2 to 3) mEq/L Darrel Test N/A Sodium (136-145) mEq/L Potassium (3.5-5.1) mEq/L Chloride (98-107) mEq/L Carbon Dioxide (23-29) mEq/L BUN (8-23) mg/dL Creatinine (0.70-1.30) mg/dL Est GFR ( Amer) (> 60) Est GFR (Non-Af Amer) (> 60) BUN/Creatinine Ratio (6-26) Glucose (70-105) mg/dL Calculated Osmolality (280-300) Lactic Acid (0.5-2.2) mmol/L Calcium (8.6-10.3) mg/dL Phosphorus (2.7-4.5) mg/dL Magnesium (1.6-2.6) mg/dL Total Bilirubin (0.3-1.0) mg/dL Direct Bilirubin (0.0-0.2) mg/dL Indirect Bilirubin (0.0-1.2) mg/dL AST (13-39) Units/L ALT (7-52) Units/L Alkaline Phosphatase (34-104) Units/L Troponin I (< 0.04) ng/mL B-Natriuretic Peptide (Less than 100) pg/mL Serum Total Protein (6.4-8.9) g/dL Albumin (3.5-5.7) g/dL Globulin (2.4-3.5) g/dL Albumin/Globulin Ratio (1.1-2.2) Urine Color Kenzie A (Yellow) Urine Clarity Turbid A (Clear) Urine pH 5.0 (5.0-8.0) pH Units Ur Specific [place] > 1.030 H (1.010-1.025) Urine Protein 100 H (Neg-Trace) mg/dL Urine Glucose (UA) Normal (Normal) mg/dL Urine Ketones Trace H (Negative) mg/dL Urine Blood Moderate H (Negative) Urine Nitrite Positive A (Negative) Urine Bilirubin Moderate H (Negative) Urine Urobilinogen Normal (Normal) mg/dL Ur Leukocyte Esterase Small H (Negative) Urine Microscopic RBC 3-5 H (0-3) per hpf Urine Microscopic WBC 15-30 H (0-3) per hpf Ur Squamous Epith Cells Many H (None-Few) per lpf Ur Renal Epithelial Cell Few (None-Few) per hpf Urine Bacteria Many H (None-Few) per hpf Hyaline Casts None Seen (None-Few) per lpf Granular Casts Many H (None Seen) per lpf Ur Culture Indicated? NO. A (NO) 09/01/18 09/01/18 09/01/18 Range/Units 21:28 21:28 21:28 WBC (4.3-11.1) K/mcL RBC (4.19-5.50) M/mcL Hgb (12.9-16.9) g/dL Hct (37.5-50.1) % MCV (83.0-100.0) fL MCH (28.0-33.3) pg MCHC (31.6-35.5) g/dL RDW (11.5-14.5) % Plt Count (140-400) K/mcL MPV (9.4-12.4) fL Immature Gran % (0-4) % Seg Neutrophils % % Lymphocytes % % Monocytes % % Eosinophils % % Basophils % % Neutrophils # (1.6-8.9) K/mcL Lymphocytes # (0.6-4.6) K/mcL Monocytes # (0.0-1.3) K/mcL Eosinophils # (0.0-0.6) K/mcL Basophils # (0.0-0.2) K/mcL PT (9.4-12.1) Seconds INR APTT (26.0-36.0) Seconds Sample Site ABG pH (7.32-7.45) pH Units ABG pCO2 (35-45) mmHg ABG pO2 (85-104) mmHg ABG HCO3 (21-27) mEq/L ABG Total CO2 (20-26) mEq/L ABG O2 Saturation (95-98) % ABG Base Excess (-2 to 3) mEq/L Darrel Test Sodium 151 H (136-145) mEq/L Potassium 3.9 (3.5-5.1) mEq/L Chloride 112 H (98-107) mEq/L Carbon Dioxide 28 (23-29) mEq/L BUN 40 H (8-23) mg/dL Creatinine 1.46 H (0.70-1.30) mg/dL Est GFR ( Amer) 57 L (> 60) Est GFR (Non-Af Amer) 47 L (> 60) BUN/Creatinine Ratio 27 H (6-26) Glucose 149 H (70-105) mg/dL Calculated Osmolality 325 H (280-300) Lactic Acid 2.2 (0.5-2.2) mmol/L Calcium 9.2 (8.6-10.3) mg/dL Phosphorus (2.7-4.5) mg/dL Magnesium (1.6-2.6) mg/dL Total Bilirubin (0.3-1.0) mg/dL Direct Bilirubin (0.0-0.2) mg/dL Indirect Bilirubin (0.0-1.2) mg/dL AST (13-39) Units/L ALT (7-52) Units/L Alkaline Phosphatase (34-104) Units/L Troponin I 0.05 H* (< 0.04) ng/mL B-Natriuretic Peptide 134 H (Less than 100) pg/mL Serum Total Protein (6.4-8.9) g/dL Albumin (3.5-5.7) g/dL Globulin (2.4-3.5) g/dL Albumin/Globulin Ratio (1.1-2.2) Urine Color (Yellow) Urine Clarity (Clear) Urine pH (5.0-8.0) pH Units Ur Specific Kenton (1.010-1.025) Urine Protein (Neg-Trace) mg/dL Urine Glucose (UA) (Normal) mg/dL Urine Ketones (Negative) mg/dL Urine Blood (Negative) Urine Nitrite (Negative) Urine Bilirubin (Negative) Urine Urobilinogen (Normal) mg/dL Ur Leukocyte Esterase (Negative) Urine Microscopic RBC (0-3) per hpf Urine Microscopic WBC (0-3) per hpf Ur Squamous Epith Cells (None-Few) per lpf Ur Renal Epithelial Cell (None-Few) per hpf Urine Bacteria (None-Few) per hpf Hyaline Casts (None-Few) per lpf Granular Casts (None Seen) per lpf Ur Culture Indicated? (NO) 09/01/18 09/01/18 Range/Units 21:28 21:28 WBC (4.3-11.1) K/mcL RBC (4.19-5.50) M/mcL Hgb (12.9-16.9) g/dL Hct (37.5-50.1) % MCV (83.0-100.0) fL MCH (28.0-33.3) pg MCHC (31.6-35.5) g/dL RDW (11.5-14.5) % Plt Count (140-400) K/mcL MPV (9.4-12.4) fL Immature Gran % (0-4) % Seg Neutrophils % % Lymphocytes % % Monocytes % % Eosinophils % % Basophils % % Neutrophils # (1.6-8.9) K/mcL Lymphocytes # (0.6-4.6) K/mcL Monocytes # (0.0-1.3) K/mcL Eosinophils # (0.0-0.6) K/mcL Basophils # (0.0-0.2) K/mcL PT 11.9 (9.4-12.1) Seconds INR 1.1 APTT 40.7 H (26.0-36.0) Seconds Sample Site ABG pH (7.32-7.45) pH Units ABG pCO2 (35-45) mmHg ABG pO2 (85-104) mmHg ABG HCO3 (21-27) mEq/L ABG Total CO2 (20-26) mEq/L ABG O2 Saturation (95-98) % ABG Base Excess (-2 to 3) mEq/L Darrel Test Sodium (136-145) mEq/L Potassium (3.5-5.1) mEq/L Chloride (98-107) mEq/L Carbon Dioxide (23-29) mEq/L BUN (8-23) mg/dL Creatinine (0.70-1.30) mg/dL Est GFR ( Amer) (> 60) Est GFR (Non-Af Amer) (> 60) BUN/Creatinine Ratio (6-26) Glucose (70-105) mg/dL Calculated Osmolality (280-300) Lactic Acid (0.5-2.2) mmol/L Calcium (8.6-10.3) mg/dL Phosphorus 3.5 (2.7-4.5) mg/dL Magnesium 2.7 H (1.6-2.6) mg/dL Total Bilirubin 0.8 (0.3-1.0) mg/dL Direct Bilirubin 0.4 H (0.0-0.2) mg/dL Indirect Bilirubin 0.4 (0.0-1.2) mg/dL AST 41 H (13-39) Units/L ALT 22 (7-52) Units/L Alkaline Phosphatase 81 (34-104) Units/L Troponin I (< 0.04) ng/mL B-Natriuretic Peptide (Less than 100) pg/mL Serum Total Protein 6.4 (6.4-8.9) g/dL Albumin 3.6 (3.5-5.7) g/dL Globulin 2.8 (2.4-3.5) g/dL Albumin/Globulin Ratio 1.3 (1.1-2.2) Urine Color (Yellow) Urine Clarity (Clear) Urine pH (5.0-8.0) pH Units Ur Specific [place]on (1.010-1.025) Urine Protein (Neg-Trace) mg/dL Urine Glucose (UA) (Normal) mg/dL Urine Ketones (Negative) mg/dL Urine Blood (Negative) Urine Nitrite (Negative) Urine Bilirubin (Negative) Urine Urobilinogen (Normal) mg/dL Ur Leukocyte Esterase (Negative) Urine Microscopic RBC (0-3) per hpf Urine Microscopic WBC (0-3) per hpf Ur Squamous Epith Cells (None-Few) per lpf Ur Renal Epithelial Cell (None-Few) per hpf Urine Bacteria (None-Few) per hpf Hyaline Casts (None-Few) per lpf Granular Casts (None Seen) per lpf Ur Culture Indicated? (NO) - Radiology Data Radiology results reviewed: Yes I reviewed the patient's radiology results. Critical Care Time Critical Care Time: Yes Total Critical Care Time: 60 Attestation: The high probability of a clinically significant, sudden or life threatening deterioration of the [CV/resp] system(s) required my full and direct attention, intervention and personal management. The aggregate critical care time was [60] minutes. This time is in addition to time spent performing reported procedures but includes the following: [x] Data Review and interpretation [x] Patient assessment and monitoring of vital signs [x] Documentation [x] Medication orders and management S.B.A.R. - S.B.A.R. Situation: Demographics, MOA Background: Presenting Complaint, Relevant PMH, Meds, & Allergies Assessment: Vital Signs, Course and respsone to treatment, Exam Concerns, Pa tient/Family Expectation, Pertinant Lab Results Recommendation: Barrier(s) to disposition, Recommendation based on pending studies, treatments, or consults S.B.A.R. Report Given to: Dr. Pérez Attestation Statement - Attestation Attestation: I examined this patient and my medical decision-making was reviewed with the Resident Physician, Dr. Kay. I agree with the documented findings, disposition and treatment plan as described except to the extent set forth below . Patient is a 78-year-old elderly white male with history of dementia who presents seem or permit by EMS today with respiratory distress, fatigue and malaise with reported fevers and cough. Patient resides at home and is cared for by his and daughters but has per family, advanced dementia and is nonverbal and unable to ambulate independently. Family has no home health assistance at this time. The report that the patient's had a cough, fevers chills, and gradually worsening alertness over the past 3-4 days. Patient arrives on a nonrebreather with increased work of breathing, tachycardic and hypertensive as well as febrile. Patient unable to provide any information regarding his history. I agree with patient's physical exam findings as documented. Patient was continued on a nonrebreather during his assessment placed on cardiac monitoring and pulse ox, EKG shows sinus tachycardia without acute ischemia. Patient underwent sepsis evaluation with IV fluid bolus initiated based on meetings Sirs criteria. Clinical suspicion was for possible pneumonia based on his respiratory distress and history of fever and cough. Patient CBC is within normal limits, patient was found to have a urinary tract infection on his urinalysis. Patient's metabolic panel shows elevated sodium, renal insufficiency, but normal lactate. Patient's troponin was elevated which is new for him. Rectal aspirin was ordered based on the finding. Patient underwent CT imaging of his head as well as his abdomen and pelvis, CT head is unremarkable, abdomen and pelvis shows extensive stool and fecal impaction otherwise within normal limits. Manual disimpaction was attempted but unsuccessful patient will be ordered enemas. Patient received IV antibiotics for pneumonia as well as UTI. Prolonged discussions at bedside with family and elicited that they did not 1 extreme life-saving measures performed, they wish to make him a DNR CCA, paperwork was completed and placed on the patient's chart. They also do not want to intubate him. Patient's blood pressure has remained stable he is doing better from a respiratory standpoint on BiPAP at this time. Patient will be admitted to the hospitalist service for further evaluation and management of sepsis, pneumonia, UTI, respiratory distress or hypoxia, elevated troponin.
[2018-09-01 21:00] LABS: ABG Base Excess 5 mEq/L (-2 to 3); ABG HCO3 29 mEq/L (21-27); ABG Oxygen Saturation 95 % (95-98); ABG PCO2 40 mmHg (35-45); ABG PH 7.47 pH Units (7.32-7.45); ABG PO2 70 mmHg (85-104); ABG TCO2 30 mEq/L (20-26)
[2018-09-01 21:00] LABS: Bilirubin,Urine Moderate (Negative); Blood,Urine Moderate (Negative); Clarity,Urine Turbid (Clear); Glucose,Urine (UA) Normal (Normal); Ketones,Urine Trace mg/dL (Negative); Leukocyte Esterase,Urine Small (Negative); Nitrite,Urine Positive (Negative); Protein,Urine 100 mg/dL (Neg-Trace); Specific Gravity,Urine > 1.030 (1.010-1.025); Urobilinogen,Urine Normal (Normal)
[2018-09-01] MEDS ORDERED: Acetaminophen 650 MG RECTAL SUPP RC ONE (21:00)
[2018-09-01 21:04] LABS: Squamous Epithelial Cell,Urine Many per lpf (None-Few); WBC,Urine 15-30 per hpf (0-3)
[2018-09-01 21:08] LABS: Color,Urine Amber (Yellow)
[2018-09-01 21:26] LABS: Granular Casts,Urine Many per lpf (None Seen); Hyaline Casts,Urine None Seen per lpf (None-Few); Renal Epithelial Cells,Urine Few per hpf (None-Few)
[2018-09-01 21:27] LABS: Bacteria,Urine Many per hpf (None-Few)
[2018-09-01 21:43] LABS: Basophils % 0.4 %; Hematocrit 46.1 % (37.5-50.1); Immature Granulocytes % 0.6 % (0-4); Lymphocytes # 0.4 K/mcL (0.6-4.6); Lymphocytes % 7.6 %; Mean Corpuscular HGB Conc 32.5 g/dL (31.6-35.5); Mean Corpuscular Hemoglobin 29.4 pg (28.0-33.3); Mean Corpuscular Volume 90.2 fL (83.0-100.0); Monocytes # 0.2 K/mcL (0.0-1.3); Monocytes % 3.3 %; Neutrophils # 4.6 K/mcL (1.6-8.9); Platelet Count 171 K/mcL (140-400); Red Blood Count 5.11 M/mcL (4.19-5.50); Red Cell Distribution Width 14.6 % (11.5-14.5); Segmented Neutrophils % 88.1 %
[2018-09-01 21:50] LABS: INR 1.1; Prothrombin Time 11.9 Seconds (9.4-12.1)
[2018-09-01 21:53] LABS: Activated Partial Thrombo Time 40.7 Seconds (26.0-36.0)
[2018-09-01 22:02] LABS: Albumin 3.6 g/dL (3.5-5.7); Albumin/Globulin Ratio 1.3 (1.1-2.2); Bilirubin,Direct 0.4 mg/dL (0.0-0.2); Bilirubin,Indirect 0.4 mg/dL (0.0-1.2); Bilirubin,Total 0.8 mg/dL (0.3-1.0); Globulin 2.8 g/dL (2.4-3.5); Magnesium 2.7 mg/dL (1.6-2.6); Phosphorous 3.5 mg/dL (2.7-4.5); Total Protein 6.4 g/dL (6.4-8.9)
[2018-09-01 22:05] LABS: Calcium 9.2 mg/dL (8.6-10.3); Potassium 3.9 mEq/L (3.5-5.1)
[2018-09-01 22:12] LABS: Troponin I 0.05 ng/mL (< 0.04)
[2018-09-01] MEDS: 0.9 % Sodium Chloride 1,000 ML IVC SCH ×2 (22:13→23:49)
[2018-09-02] MEDS ORDERED: Naloxone 0.4 MG/ML INJ IVP PRN (00:35)
[2018-09-02] MEDS ORDERED: Ipratropium/Albuterol Neb 3 ML IH PRN (00:42)
--- NOTE | 2018-09-02 00:48 | Internal Med History&Physical ---
<Cyril Alvarado - Last Filed: 09/02/18 01:31> Date of Encounter: 09/02/18 Time of Encounter: 00:46 Internal Medicine - H&P: HPI Chief complaint: Dehydration, altered mental status, vomiting Admitted From: Emergency Dept Plans for Post Hospital Care: at Medical Facility History of present illness: Mr. Ozuna is a 78 year old male with past medical history of Alzheimer's dementia who lives at home with his , who is his primary welt rander. History was obtained from patient's Teena, and his daughters who were at bedside. He states that starting about 2 days ago patient has been having multiple issues including fever as high as 102, chest congestion, nonproductive cough that started yesterday, jerking/shaking, poor appetite, poor oral intake. He also has been having diarrhea that started 2 days ago as well, and has been having to lose bowel movements daily. Recent sick contacts include his , who recently had bronchitis. Patient was not having nausea, vomiting or chills. He was not complaining of any chest pain recently, but this is not very reliable as he has baseline dementia. Family denies hematuria, melena, hematochezia. Patient has not been on any antibiotics recently. His family is also concerned that he has been following, tripping for the last few days, and has not ever had problems walking before us. Past Med Surg Social Fam HX - Past Medical History Medical history: dementia, other Psychiatric history: no psych history - Past Surgical History Surgical History: no surgical history - Social History Smoking Status: Unknown if ever smoked Smokeless Tobacco Status: No Alcohol use: unknown Drug use: unknown - Family History Sister Hx Family Cardiac Disorders: Yes Hx Family Endocrine Disorder: Yes (DM) Hx Family Neurologic Disorders: Yes (alz) Brother Hx Family Cardiac Disorders: Yes Internal Medicine - H&P: Meds RX: OLANZapine [Zyprexa Zydis] 5 mg PO BID #60 tab.rapdis 04/01/17 [Rx] RX: Sennosides/Docusate Sodium [Senna Plus] 1 each PO DAILY PRN #30 tablet 04/01/17 [Rx] Allergy/AdvReac Type Severity Reaction Status Date / Time No Known Allergies Allergy Verified 03/29/17 12:40 All Systems PM: A 10-system review of systems was performed and is negative for pertinent findings except as documented above in the HPI. - Constitutional Constitutional: as per HPI - EENT Eyes: as per HPI Ears: as per HPI Nose, mouth and throat: as per HPI - Breasts Breasts: as per HPI - Cardiovascular Cardiovascular ROS IM: as per HPI - Respiratory Respiratory: as per HPI - Gastrointestinal Gastrointestinal: as per HPI - Genitourinary Genitourinary ROS male: as per HPI - Musculoskeletal Musculoskeletal ROS IM: as per HPI - Integumentary Integumentary IM: as per HPI - Neurological Neurological ROS: as per HPI - Psychiatric Psychiatric: as per HPI - Endocrine Endocrine IM: as per HPI - Hematologic/Lymphatic Hematologic/Lymphatic: as per HPI - Allergic/Immunologic Allergic/Immunologic: as per HPI - Constitutional Vitals: Temp Pulse Resp BP Pulse Ox 104.5 F H 119 25 167/119 97 09/01/18 20:33 09/01/18 20:33 09/01/18 21:49 09/01/18 20:33 09/01/18 21:49 General appearance: Present: A&O X 0, mild distress, underweight. Absent: answers questions appropriately Exam: Patient was laying in bed with BiPAP mask on, was intermittently alert, and followed very little commands. He would intermittently respond to voice and follow commands. patient appears very emaciated. - Head Head exam: Present: atraumatic, normocephalic - Eye Eye exam: Present: PERRL, conjuntiva pink, sclera anicteric. Absent: nystagmus, periorbital swelling, periorbital tenderness, scleral icterus Pupils: Present: PERRL - ENT ENT exam: Present: mucous membranes dry - Neck Neck exam general surgery: Present: supple, trachea midline. Absent: lymphadenopathy - Respiratory Respiratory exam: Present: decreased breath sounds. Absent: wheezes - Cardiovascular Cardiovascular exam: Present: RRR, +S1, +S2. Absent: distant heart sounds, irregular rhythm, systolic murmur, tachycardia - GI/Abdominal GI/Abdominal exam: Present: normal bowel sounds, soft, tenderness (tenderness to palpation of left lower quadrant. ). Absent: distended, guarding, hernia, hepatomegaly, splenomegaly - Extremities Exam Extremities exam: Present: normal inspection. Absent: cyanotic, mottling, pedal edema Additional comments: delayed capillary refill - Neurological Exam Neurological exam: Present: altered. Absent: facial droop Additional comments: patient intermittently alert, has baseline dementia. does not follow commands. - Skin Skin exam: Present: dry, intact, pallor. Absent: cyanosis, erythema Internal Med - H&P Results - Labs CBC & Chem 7: 09/01/18 21:28 09/01/18 21:28 Labs: Short CBC 09/01/18 Range/Units 21:28 WBC 5.2 (4.3-11.1) K/mcL Hgb 15.0 (12.9-16.9) g/dL Hct 46.1 (37.5-50.1) % Plt Count 171 (140-400) K/mcL Neutrophils # 4.6 (1.6-8.9) K/mcL BMP 09/01/18 21:28 Sodium 151 H Potassium 3.9 Chloride 112 H Carbon Dioxide 28 BUN 40 H Creatinine 1.46 H Glucose 149 H Calcium 9.2 Cardiac Enzymes 09/01/18 Range/Units 21:28 Troponin I 0.05 H* (< 0.04) ng/mL Liver Function 09/01/18 Range/Units 21:28 Total Bilirubin 0.8 (0.3-1.0) mg/dL Direct Bilirubin 0.4 H (0.0-0.2) mg/dL AST 41 H (13-39) Units/L ALT 22 (7-52) Units/L Alkaline Phosphatase 81 (34-104) Units/L Albumin 3.6 (3.5-5.7) g/dL Urine 09/01/18 Range/Units 20:42 Urine Color Kenzie A (Yellow) Urine Clarity Turbid A (Clear) Urine pH 5.0 (5.0-8.0) pH Units Ur Specific [place] > 1.030 H (1.010-1.025) Urine Protein 100 H (Neg-Trace) mg/dL Urine Glucose (UA) Normal (Normal) mg/dL - ABG Interpretation ABG results: 09/01/18 20:56 ABG pH 7.47 H ABG pCO2 40 ABG pO2 70 L ABG HCO3 29 H ABG Total CO2 30 H ABG O2 Saturation 95 ABG Base Excess 5 H - Impressions ITS Impressions Chest X-Ray 09/01/18 20:24 IMPRESSION: Left retrocardiac opacity, likely pneumonia. Underlying mass cannot be excluded and follow-up to complete clearing is recommended. Moderate to marked distention of large bowel in the upper abdomen by gas and stool. While this likely represents constipation/fecal impaction, a low large bowel obstruction is not excluded. Follow-up flat and upright abdominal study would be helpful. D/ / Rodney Calvillo MD / Rodney Calvillo MD Interpreting Provider: Rodney Calvillo MD Head CT 09/01/18 20:39 IMPRESSION: No acute intracranial abnormality. Cerumen within the external auditory canals bilaterally. Direct visualization recommended, as these may be occlusive. D/ / Tejinder Herring MD / Tejinder Herring MD Interpreting Provider: Tejinder Herring MD Abdomen/Pelvis CT 09/01/18 22:05 IMPRESSION: Very large amount of stool within the rectum, compatible with rectal impaction. Within the distal aspect of the descending colon, there is focal, mildly eccentric mural thickening with surrounding fat stranding. That could be artifactual secondary to incomplete distention, but acute diverticulitis and even a colonic mass are considered as well. After resolution of acute symptoms, follow-up scan or direct visualization is recommended. There is gaseous dilation of the large bowel more proximally, with a moderate to large amount of stool, most suggestive of ileus and constipation. No evidence of small bowel obstruction. Dense left lower lobe consolidation, with patchy consolidation also identified within the lingula and right lower lobe, compatible with multifocal pneumonia or aspiration. That should be followed to resolution. D/ / Tejinder Herring MD / Tejinder Herring MD Interpreting Provider: Tejinder Herring MD - Assessment and plan (1) Severe sepsis Current Visit: Yes Status: Acute Assessment and plan: Temperature 104.5, tachycardia, tachypnea, lactic acid 2.2 Suspect severe sepsis due to multiple infection sources: UTI, pneumonia, poss ible diverticulitis chest x-ray showed left retro cardiac opacity, underlying mass cannot be exclude d. Left lower lobe and right lower lobe consolidation. CT abdomen/pelvis showed stool within the rectum, rectal impaction, fat stranding, possible mass versus acute diverticulitis. Emergency department, patient received 1 L NS bolus breathing treatment, Solu- Medrol, one dose vancomycin and one dose of Zosyn. Plan: blood cultures X2 pending, urine culture pending. zosyn day 1 maintenance fluids with 1/2 NS recheck lactic acid with a.m. labs chest CT pending PRN bronchodilators follow-up chest x-ray and CT abdomen/pelvis to rule out underlying mass fecal does impaction attempted and emergency department, but was unsuccessful. Patient received enema. If no response, consider surgery consult NPO for now to avoid aspiration in setting of altered mentation. Consult to speech therapy for swallow eval consult to nutrition EV echo pending (2) JASON (acute kidney injury) Current Visit: Yes Status: Acute Assessment and plan: Creatinine 1.46, baseline creatinine normal. Etiology likely prerenal in setting of dehydration, poor oral intake, acute illness, severe sepsis, diarrhea plan: gentle hydration with 1/2 normal saline recheck kidney function with morning labs follow a renal protective strategy, avoid nephrotoxic agents (3) Alzheimer's dementia with behavioral disturbance Current Visit: No Status: Acute Assessment and plan: Restart home medications once swallow eval completed Qualifiers: Alzheimer's disease onset: late-onset Qualified Code(s): G30.1 - Alzheimer's disease with late onset; F02.81 - Dementia in other diseases clas sified elsewhere with behavioral disturbance (4) Altered mental status Current Visit: No Status: Chronic Assessment and plan: CT had negative suspect secondary to severe sepsis. Continue to monitor Qualifiers: Altered mental status type: unspecified Qualified Code(s): R41.82 - Altered mental status, unspecified (5) Hypernatremia Current Visit: Yes Status: Acute Assessment and plan: sodium 151 Suspect secondary to dehydration, decreased oral intake. Free water deficit: 2.9L Plan as #1 above (6) Elevated troponin Current Visit: Yes Status: Acute Assessment and plan: Initial troponin 0.05 suspect likely secondary to demand ischemia and setting of severe sepsis. Continue trended trend troponin's (7) Fecal impaction Current Visit: Yes Status: Acute Assessment and plan: CT abdomen/pelvis showed dilation of large bowel proximally with large amounts stool. Fecal disinfection was attempted in the emergency department, however was unsuccessful because impaction was too high Plan: patient was given enema in the emergency department, will see how he responds. (8) UTI (urinary tract infection) Current Visit: Yes Status: Acute Assessment and plan: Antibiotics as #1 above Qualifiers: Urinary tract infection type: site unspecified Hematuria presence: without hematuria Qualified Code(s): N39.0 - Urinary tract infection, site not specified (9) Diverticulitis Current Visit: Yes Status: Acute Assessment and plan: Antibiotics As number 1 above (10) DVT prophylaxis Current Visit: No Status: Acute Assessment and plan: heparin SQ - Time Spent With Patient Total time spent is greater than 50% in coordination of care (as documented) at patient's floor/unit and/or counseling patient: BrianElisaLuann - Last Filed: 09/02/18 02:48> Date of Encounter: 09/02/18 Internal Medicine - H&P: HPI History of present illness: Mr. Ozuna is a 78 year old male All Systems PM: A 10-system review of systems was performed and is negative for pertinent f indings except as documented above in the HPI. - Constitutional Vitals: Temp Pulse Resp BP Pulse Ox 98.4 F 93 18 109/83 96 09/02/18 01:30 09/02/18 01:30 09/02/18 01:30 09/02/18 01:30 09/02/18 01:30 Internal Med - H&P Results - Labs CBC & Chem 7: 09/01/18 21:28 09/01/18 21:28 Labs: Short CBC 09/01/18 Range/Units 21:28 WBC 5.2 (4.3-11.1) K/mcL Hgb 15.0 (12.9-16.9) g/dL Hct 46.1 (37.5-50.1) % Plt Count 171 (140-400) K/mcL Neutrophils # 4.6 (1.6-8.9) K/mcL BMP 09/01/18 21:28 Sodium 151 H Potassium 3.9 Chloride 112 H Carbon Dioxide 28 BUN 40 H Creatinine 1.46 H Glucose 149 H Calcium 9.2 Cardiac Enzymes 09/01/18 Range/Units 21:28 Troponin I 0.05 H* (< 0.04) ng/mL Liver Function 09/01/18 Range/Units 21:28 Total Bilirubin 0.8 (0.3-1.0) mg/dL Direct Bilirubin 0.4 H (0.0-0.2) mg/dL AST 41 H (13-39) Units/L ALT 22 (7-52) Units/L Alkaline Phosphatase 81 (34-104) Units/L Albumin 3.6 (3.5-5.7) g/dL Urine 09/01/18 Range/Units 20:42 Urine Color Kenzie A (Yellow) Urine Clarity Turbid A (Clear) Urine pH 5.0 (5.0-8.0) pH Units Ur Specific [place] > 1.030 H (1.010-1.025) Urine Protein 100 H (Neg-Trace) mg/dL Urine Glucose (UA) Normal (Normal) mg/dL - ABG Interpretation ABG results: 09/01/18 20:56 ABG pH 7.47 H ABG pCO2 40 ABG pO2 70 L ABG HCO3 29 H ABG Total CO2 30 H ABG O2 Saturation 95 ABG Base Excess 5 H - Impressions ITS Impressions Chest X-Ray 09/01/18 20:24 IMPRESSION: Left retrocardiac opacity, likely pneumonia. Underlying mass cannot be excluded and follow-up to complete clearing is recommended. Moderate to marked distention of large bowel in the upper abdomen by gas and stool. While this likely represents constipation/fecal impaction, a low large bowel obstruction is not excluded. Follow-up flat and upright abdominal study would be helpful. D/ / Rodney Calvillo MD / Rodney Calvillo MD Interpreting Provider: Rodney Calvillo MD Head CT 09/01/18 20:39 IMPRESSION: No acute intracranial abnormality. Cerumen within the external auditory canals bilaterally. Direct visualization recommended, as these may be occlusive. D/ / Tejinder Herring MD / Tejinder Herring MD Interpreting Provider: Tejinder Herring MD Abdomen/Pelvis CT 09/01/18 22:05 IMPRESSION: Very large amount of stool within the rectum, compatible with rectal impaction. Within the distal aspect of the descending colon, there is focal, mildly eccentric mural thickening with surrounding fat stranding. That could be artifactual secondary to incomplete distention, but acute diverticulitis and even a colonic mass are considered as well. After resolution of acute symptoms, follow-up scan or direct visualization is recommended. There is gaseous dilation of the large bowel more proximally, with a moderate to large amount of stool, most suggestive of ileus and constipation. No evidence of small bowel obstruction. Dense left lower lobe consolidation, with patchy consolidation also identified within the lingula and right lower lobe, compatible with multifocal pneumonia or aspiration. That should be followed to resolution. D/ / Tejinder Herring MD / Tejinder Herring MD Interpreting Provider: Tejinder Herring MD - Time Spent With Patient Total time spent is greater than 50% in coordination of care (as documented) at patient's floor/unit and/or counseling patient: - Attending Attestation I performed a history and physical exam of the patient and discussed management with the resident. I reviewed the resident's note and agree with the documented findings and plan of care. Jose Ozuna is a 78 year old man multiple comorbidities as indicated above brought in from home in a state of lethargy and respiratory difficulty. He is seen to be febrile, cachectic which shallow breathing. In addition to exam above, psych system unable to be assessed due to mental status. Labs remarkable for hypernatremia and acute kidney injury with a highly elevated urine specific gravity and osmolality. UA is of concern for UTI, respiratory symptoms and imaging concerning for pneumonia and abdominal CT concerning for diverticulitis in addition to fecal impaction. We will need aggressive fluid resuscitation. Calculated water deficit is approximately 3 L. He was initially given isotonic fluids in the ER and now we can place on hypotonic solution. Empiric antibiotics with piperacillin/tazo for now. Obtain dedicated chest CT. Monitor electrolytes closely. Mild troponin elevation likely in the setting of the severe sepsis state of presentation rather than ACS. CODE STATUS reviewed. He be nothing by mouth for now pending speech and swallow consultation. CHENG STOVER.
[2018-09-02] MEDS ORDERED: Levofloxacin 750 MG/150 ML 750 MG/150 ML BAG IVPB SCH (01:00)
[2018-09-02 03:35] LABS: Hematocrit 38.4 % (37.5-50.1); Mean Corpuscular HGB Conc 31.5 g/dL (31.6-35.5); Mean Corpuscular Hemoglobin 28.7 pg (28.0-33.3); Mean Platelet Volume 10.7 fL (9.4-12.4); Platelet Count 117 K/mcL (140-400); Red Blood Count 4.22 M/mcL (4.19-5.50); Red Cell Distribution Width 14.4 % (11.5-14.5)
[2018-09-02 03:44] LABS: Hemoglobin 12.1 g/dL (12.9-16.9)
[2018-09-02 03:51] LABS: BUN/Creatinine Ratio 29 (6-26); Blood Urea Nitrogen 37 mg/dL (8-23); Calcium 7.4 mg/dL (8.6-10.3); Carbon Dioxide 25 mEq/L (23-29); Chloride 118 mEq/L (98-107); Glucose 177 mg/dL (70-105); Magnesium 2.2 mg/dL (1.6-2.6); Osmolality,Calculated 323 (280-300); Phosphorous 3.5 mg/dL (2.7-4.5); Potassium 3.5 mEq/L (3.5-5.1); Sodium 150 mEq/L (136-145); eGFR For Non-African Americans 55 (> 60)
--- NOTE | 2018-09-02 04:19 | Sepsis Event Note ---
Sepsis Reassessment Note - Evaluation Sepsis Screen: No Definite Risk Current Stage of Sepsis: sepsis Possible Source of Sepsis: genitourinary - Focused Exam Date of Encounter: 09/02/18 Time of Encounter: 04:18 Vital Signs: Vital Signs Temp Pulse Resp BP Pulse Ox 09/02/18 04:10 24 97 09/02/18 03:54 97.8 F 83 28 107/61 98 09/02/18 01:30 98.4 F 93 18 109/83 96 09/01/18 21:49 25 97 09/01/18 21:03 24 97 09/01/18 20:33 104.5 F H 119 24 167/119 100 09/01/18 20:25 100.2 F H 21 106/74 Respiratory Exam: Present: decreased breath sounds (patient currently on BIPAP, resting comfortably. ). Absent: wheezes, respiratory distress, accessory muscle use Cardiovascular Exam: Present: RRR, S1, S2 Capillary Refill: < 2 seconds Peripheral Pulse Strength: 2+ slightly diminished Peripheral Pulse Location: Pedal Skin Exam: normal turgor - Reassessment Comments Comments: lactic acid down to 1.7, was 2.2
[2018-09-02 04:29] LABS: Microcytosis Present (Not Present); Monocytes # 0.1 K/mcL (0.0-1.3); Neutrophils # 3.8 K/mcL (1.6-8.9); Platelet Estimate Decreased (Normal); Polychromasia 1+ (Not Present)
[2018-09-02] MEDS: *HR* Heparin 5,000 UNIT/ML VIAL SQ SCH ×2 (05:50→17:30)
[2018-09-02 06:16] LABS: BUN/Creatinine Ratio 30 (6-26); Blood Urea Nitrogen 38 mg/dL (8-23); Calcium 7.8 mg/dL (8.6-10.3); Carbon Dioxide 24 mEq/L (23-29); Chloride 117 mEq/L (98-107); Glucose 165 mg/dL (70-105); Osmolality,Calculated 321 (280-300); Potassium 3.5 mEq/L (3.5-5.1); Sodium 149 mEq/L (136-145); eGFR For Non-African Americans 56 (> 60)
[2018-09-02] MEDS ORDERED: D5% in Water 1,000 ML IVC SCH (06:29)
[2018-09-02] MEDS: Piperacillin/Tazobactam 3.375 GM in 0.9 % Sodium Chloride Mini Bag 100 ML IVPB SCH ×2 (07:55→16:20)
[2018-09-02] MEDS ORDERED: MetroNIDAZOLE 500 MG/100 ML 500 MG/100 ML BAG IVPB SCH (08:00)
[2018-09-02 12:28] LABS: BUN/Creatinine Ratio 30 (6-26); Blood Urea Nitrogen 41 mg/dL (8-23); Calcium 7.7 mg/dL (8.6-10.3); Carbon Dioxide 28 mEq/L (23-29); Chloride 116 mEq/L (98-107); Glucose 115 mg/dL (70-105); Osmolality,Calculated 321 (280-300); Potassium 3.4 mEq/L (3.5-5.1); Sodium 150 mEq/L (136-145); eGFR For Non-African Americans 51 (> 60)
[2018-09-02] MEDS: D5% in Water 1,000 ML IVC SCH (12:56)
--- NOTE | 2018-09-02 14:11 | Internal Med Progress Note ---
Hospitalist Progress Note - Encounter Date of Encounter: 09/02/18 Time of Encounter: 09:00 - Subjective Interval History: Patient is a nonverbal. Opening eyes. Still on BiPAP. Looks in mild acute respiratory distress. No fever. Patient's daughter at the bedside and said patient does not talk for several months. - Exam Vitals: Temp Pulse Resp BP Pulse Ox 97.9 F 100 16 125/94 100 09/02/18 11:25 09/02/18 12:29 09/02/18 11:25 09/02/18 11:25 09/02/18 11:25 Exam: Patient is nonverbal, vitals reviewed HEENT: NC/AT, PERRL Neck: Supple, no JVD Lungs: Decreased breath sound B/L, no wheezes/rales, scattered rhonchi b/l Abd: Soft, BS present Ext: Ne pedal edema Neuro: Nonverbal, no facial drop, cannot do further exam as pt cannot cooperate. - Assessment and Plan (1) JASON (acute kidney injury) Current Visit: Yes Status: Acute Assessment and Plan: Most likely due to severe dehydration. Continue IV fluid with D5. Closely monitor renal function. Avoid nephrotoxic medications. (2) Dehydration Current Visit: Yes Status: Acute Assessment and Plan: Most likely due to poor intake. Continue IV fluid with D5. Follow BMP. (3) Diverticulitis Current Visit: Yes Status: Acute Assessment and Plan: Suspect by CT with large stool burden. Had enema. Will repeat CT. Continue nothing by mouth, IV fluid, and IV Zosyn (4) Elevated troponin Current Visit: Yes Status: Acute Assessment and Plan: Adynamic troponin elevation 0.05-0.06-0.06 with dehydration and JASON, considered demand ischemia. (5) Fecal impaction Current Visit: Yes Status: Acute Assessment and Plan: Had enema in ER. (6) Hypernatremia Current Visit: Yes Status: Acute Assessment and Plan: Caused by dehydration. Continue D5 IV fluid (7) Hypoxia Current Visit: Yes Status: Acute Assessment and Plan: Most likely due to pneumonia. Continue antibiotics with Zosyn, continue supportive treatment. (8) Pneumonia Current Visit: Yes Status: Acute Assessment and Plan: Suspect aspiration pneumonia. Patient was placed on Zosyn for both pneumonia and possible diverticulitis. - Continue supportive treatment - Speech therapy consult for swallow evaluation (9) Sepsis Current Visit: Yes Status: Acute Assessment and Plan: Patient to meet sepsis criteria with tachycardia, fever, infection source likely pneumonia, diverticulitis, and UTI. - IV fluid started from ER - Lactate 2.2-1.7 - Continue Zosyn - Follow blood and urine culture (10) UTI (urinary tract infection) Current Visit: Yes Status: Acute Assessment and Plan: As above (11) Alzheimer's dementia with behavioral disturbance Current Visit: No Status: Acute Assessment and Plan: We will consult PT OT, resume home medication when patient start diet DVT Prophylaxis: Heparin subcutaneously - Time Spent with Patient Total time spent is greater than 50% in coordination of care (as documented) at patient's floor/unit and/or counseling patient: 30 minutes 25 - 35 minutes Plan of Care Discussed with: family Internal Medicine: Result - Labs CBC & Chem 7: 09/02/18 03:21 09/02/18 11:53 Labs: Short CBC 09/01/18 09/02/18 Range/Units 21:28 03:21 WBC 5.2 4.9 (4.3-11.1) K/mcL Hgb 15.0 12.1 L D (12.9-16.9) g/dL Hct 46.1 38.4 (37.5-50.1) % Plt Count 171 117 L (140-400) K/mcL Neutrophils # 4.6 3.8 (1.6-8.9) K/mcL BMP 09/01/18 09/02/18 09/02/18 21:28 03:21 05:47 Sodium 151 H 150 H 149 H Potassium 3.9 3.5 3.5 Chloride 112 H 118 H 117 H Carbon Dioxide 28 25 24 BUN 40 H 37 H 38 H Creatinine 1.46 H 1.27 1.25 Glucose 149 H 177 H 165 H Calcium 9.2 7.4 L 7.8 L 09/02/18 11:53 Sodium 150 H Potassium 3.4 L Chloride 116 H Carbon Dioxide 28 BUN 41 H Creatinine 1.35 H Glucose 115 H Calcium 7.7 L Cardiac Enzymes 09/01/18 09/02/18 09/02/18 Range/Units 21:28 03:21 10:40 Troponin I 0.05 H* 0.06 H* 0.06 H* (< 0.04) ng/mL Liver Function 09/01/18 Range/Units 21:28 Total Bilirubin 0.8 (0.3-1.0) mg/dL Direct Bilirubin 0.4 H (0.0-0.2) mg/dL AST 41 H (13-39) Units/L ALT 22 (7-52) Units/L Alkaline Phosphatase 81 (34-104) Units/L Albumin 3.6 (3.5-5.7) g/dL Urine 09/01/18 Range/Units 20:42 Urine Color Kenzie A (Yellow) Urine Clarity Turbid A (Clear) Urine pH 5.0 (5.0-8.0) pH Units Ur Specific Franklin > 1.030 H (1.010-1.025) Urine Protein 100 H (Neg-Trace) mg/dL Urine Glucose (UA) Normal (Normal) mg/dL - ABG Interpretation ABG results: ABG ABG pH 7.47 pH Units (7.32-7.45) H 09/01/18 20:56 ABG pCO2 40 mmHg (35-45) 09/01/18 20:56 ABG pO2 70 mmHg (85-104) L 09/01/18 20:56 ABG O2 Saturation 95 % (95-98) 09/01/18 20:56 PT/INR, D-dimer PT 11.9 Seconds (9.4-12.1) 09/01/18 21:28 - Impressions Impressions Chest X-Ray 09/01/18 20:24 IMPRESSION: Left retrocardiac opacity, likely pneumonia. Underlying mass cannot be excluded and follow-up to complete clearing is recommended. Moderate to marked distention of large bowel in the upper abdomen by gas and stool. While this likely represents constipation/fecal impaction, a low large bowel obstruction is not excluded. Follow-up flat and upright abdominal study would be helpful. D/ / Rodney Calvillo MD / Rodney Calvillo MD Interpreting Provider: Rodney Calvillo MD Head CT 09/01/18 20:39 IMPRESSION: No acute intracranial abnormality. Cerumen within the external auditory canals bilaterally. Direct visualization recommended, as these may be occlusive. D/ / Tejinder Herring MD / Tejinder Herring MD Interpreting Provider: Tejinder Herring MD Abdomen/Pelvis CT 09/01/18 22:05 IMPRESSION: Very large amount of stool within the rectum, compatible with rectal impaction. Within the distal aspect of the descending colon, there is focal, mildly eccentric mural thickening with surrounding fat stranding. That could be artifactual secondary to incomplete distention, but acute diverticulitis and even a colonic mass are considered as well. After resolution of acute symptoms, follow-up scan or direct visualization is recommended. There is gaseous dilation of the large bowel more proximally, with a moderate to large amount of stool, most suggestive of ileus and constipation. No evidence of small bowel obstruction. Dense left lower lobe consolidation, with patchy consolidation also identified within the lingula and right lower lobe, compatible with multifocal pneumonia or aspiration. That should be followed to resolution. D/ / Tejinder Herring MD / Tejinder Herring MD Interpreting Provider: Tejinder Herring MD Chest CT 09/02/18 09:40 IMPRESSION: COPD with bibasilar infiltrates, left worse than right, with a small left pleural effusion. Follow-up chest radiographs after appropriate treatment to document resolution of disease is warranted. A 2.6 cm x 1.9 cm complex cystic mass inferior aspect left lobe of the thyroid, for which nonemergent thyroid ultrasound is recommended for complete assessment. RECOMMENDATIONS: Managing Incidental Thyroid Nodule Detected at CT or MRI or US 1. Further evaluation by thyroid Ultrasound recommended for these incidental nodules: Patient Age 35 years or more - Nodule 1.5 cm in size or greater 2. Follow up thyroid ultrasound also recommend in these scenarios - Solitary nodule with high risk imaging features (locally invasive nodule or suspicious lymph nodes) - Heterogeneous, enlarged thyroid gland. - Increased uptake on PET 3. NO further imaging is recommended in the following scenarios - Any nodule not meeting above criteria. - Those patients with limited life expectancy or significant Co-morbidities. Note: These recommendations do not apply to pts. w/ increased risk for thyroid cancer or pts. with symptomatic thyroid disease. Recommendations for f/u of Incidental Thyroid Nodules (ITN) found on CT, MR, NM and Extrathyroidal US are based upon the ACR white paper and Daniels 3-tiered system for managing ITNs: J Am Dian Radiol. 2015 Nov;12(2): 143-50 D/ / 09/02/2018 10:52:35 Michel Sandoval MD / earsagar Interpreting Provider: Michel Sandoval MD Consult Discharge Plan - Plan Referrals: NONE,PCP [Primary Care Provider] - (Family said they would find patient at doctor) (8) Pneumonia Qualifiers: Pneumonia type: due to unspecified organism Laterality: unspecified laterality Lung location: unspecified part of lung Qualified Code(s): J18.9 - Pneumonia, unspecified organism (9) Sepsis Qualifiers: Sepsis type: sepsis due to unspecified organism Qualified Code(s): A41.9 - Sepsis, unspecified organism (10) UTI (urinary tract infection) Qualifiers: Urinary tract infection type: site unspecified Hematuria presence: without hematuria Qualified Code(s): N39.0 - Urinary tract infection, site not specified (11) Alzheimer's dementia with behavioral disturbance Qualifiers: Alzheimer's disease onset: late-onset Qualified Code(s): G30.1 - Alzheimer's disease with late onset; F02.81 - Dementia in other diseases classified elsewhere with behavioral disturbance
[2018-09-02] MEDS ORDERED: Haloperidol Lactate 5 MG/ML VIAL IVP ONE (16:15)
--- NOTE | 2018-09-02 17:36 | Electrocardiograph Report ---
[address] [place], [place] [address] Test Date: 2018-09-02 Pat Name: Jose Ozuna Department: 110 Room: 15 Gender: M [employer] Installer: PATTIE : 1940 Requested By: Tiffani Smyth Order Number: [id number] Reading MD: Gama Shepherd Measurements Intervals Ewing Rate: 91 P: DE: 0 QRS: -44 QRSD: 89 T: 51 QT: 373 QTc: 422 Interpretive Statements Significant artifact Rhythm appears regular Recommend repeat ECG Electronically Signed On 09-02-2018 17:35:01 EST by Gama Shepherd
[2018-09-03] MEDS: Piperacillin/Tazobactam 3.375 GM in 0.9 % Sodium Chloride Mini Bag 100 ML IVPB SCH ×3 (00:09→15:59)
[2018-09-03] MEDS: *HR* Heparin 5,000 UNIT/ML VIAL SQ SCH ×2 (04:49→18:25)
[2018-09-03 06:31] LABS: Hematocrit 36.8 % (37.5-50.1); Hemoglobin 11.8 g/dL (12.9-16.9); Mean Corpuscular HGB Conc 32.1 g/dL (31.6-35.5); Mean Corpuscular Hemoglobin 28.9 pg (28.0-33.3); Mean Corpuscular Volume 90.2 fL (83.0-100.0); Mean Platelet Volume 11.3 fL (9.4-12.4); Monocytes # 0.2 K/mcL (0.0-1.3); Platelet Count 132 K/mcL (140-400); Red Blood Count 4.08 M/mcL (4.19-5.50); Red Cell Distribution Width 14.7 % (11.5-14.5)
[2018-09-03 06:42] LABS: BUN/Creatinine Ratio 30 (6-26); Blood Urea Nitrogen 41 mg/dL (8-23); Calcium 7.9 mg/dL (8.6-10.3); Carbon Dioxide 29 mEq/L (23-29); Chloride 114 mEq/L (98-107); Glucose 106 mg/dL (70-105); Osmolality,Calculated 319 (280-300); Potassium 3.8 mEq/L (3.5-5.1); Sodium 149 mEq/L (136-145); eGFR For Non-African Americans 51 (> 60)
[2018-09-03 06:57] LABS: Lymphocytes # 1.4 K/mcL (0.6-4.6); Neutrophils # 6.2 K/mcL (1.6-8.9)
[2018-09-03 06:58] LABS: Platelet Estimate Slight Decrease (Normal)
[2018-09-03] MEDS: D5% in Water 1,000 ML IVC SCH ×2 (07:50→16:04)
--- NOTE | 2018-09-03 11:49 | Internal Med Progress Note ---
Hospitalist Progress Note - Encounter Date of Encounter: 09/03/18 Time of Encounter: 09:00 - Subjective Interval History: Patient is nonverbal. Opening eyes and move 4 limbs. Looks in no acute respiratory distress today. Off BiPAP. No fever. Patient's daughter at the bedside and said patient does not talk at home for several months and it is his baseline.. - Exam Vitals: Temp Pulse Resp BP Pulse Ox 97.6 F 62 18 91/61 98 09/03/18 11:12 09/03/18 11:12 09/03/18 11:12 09/03/18 11:12 09/03/18 11:12 Exam: Patient is nonverbal, vitals reviewed HEENT: NC/AT, PERRL Neck: Supple, no JVD Lungs: Decreased breath sound B/L, no wheezes/rales, scattered rhonchi b/l Abd: Soft, BS present Ext: Ne pedal edema Neuro: Nonverbal, no facial drop, move 4 limbs on stimulation, cannot do further exam as pt cannot cooperate. - Assessment and Plan (1) JASON (acute kidney injury) Current Visit: Yes Status: Acute Assessment and Plan: Most likely due to severe dehydration. Continue IV fluid with D5 and increased rate as urine output is still low. Closely monitor renal function. Avoid nephrotoxic medications. Strict I/O. (2) Dehydration Current Visit: Yes Status: Acute Assessment and Plan: Most likely due to poor intake. Continue IV fluid with D5. Follow BMP. (3) Diverticulitis Current Visit: Yes Status: Acute Assessment and Plan: Repeat CT abd show asymmetric wall thickness, neoplasm cannot excluded. Recommend colonoscope. Apparently pt cannot tolerate colonoscope at this point, will d/w family regarding the goal of care as pt has severe dementia already. (4) Elevated troponin Current Visit: Yes Status: Acute Assessment and Plan: Adynamic troponin elevation 0.05-0.06-0.06 with dehydration and JASON, considered demand ischemia. (5) Fecal impaction Current Visit: Yes Status: Acute Assessment and Plan: Had enema in ER, another enema in floor yesterday. CT still shows large stool burden. Pt still has BM with lose stool after CT, will cont closely monitor pt. (6) Hypernatremia Current Visit: Yes Status: Acute Assessment and Plan: Caused by dehydration. Continue D5 IV fluid (7) Hypoxia Current Visit: Yes Status: Acute Assessment and Plan: Most likely due to pneumonia. Continue antibiotics with Zosyn, continue supportive treatment. (8) Pneumonia Current Visit: Yes Status: Acute Assessment and Plan: Suspect aspiration pneumonia. Patient was placed on Zosyn. - Continue supportive treatment - Speech therapy consult for swallow evaluation (9) Sepsis Current Visit: Yes Status: Acute Assessment and Plan: Patient to meet sepsis criteria with tachycardia, fever, infection source likely pneumonia. Less likely UTI. - IV fluid started from ER - Lactate 2.2-1.7 - Continue Zosyn - Follow blood and urine culture (10) UTI (urinary tract infection) Current Visit: Yes Status: Acute Assessment and Plan: As above (11) Alzheimer's dementia with behavioral disturbance Current Visit: No Status: Acute Assessment and Plan: We will consult PT OT, resume home medication when patient start diet DVT Prophylaxis: Heparin subcutaneously - Time Spent with Patient Total time spent is greater than 50% in coordination of care (as documented) at patient's floor/unit and/or counseling patient: 30 min 25 - 35 minutes Plan of Care Discussed with: family Internal Medicine: Result - Labs CBC & Chem 7: 09/03/18 06:09 09/03/18 06:09 Labs: Short CBC 09/03/18 Range/Units 06:09 WBC 7.7 D (4.3-11.1) K/mcL Hgb 11.8 L (12.9-16.9) g/dL Hct 36.8 L (37.5-50.1) % Plt Count 132 L (140-400) K/mcL Neutrophils # 6.2 (1.6-8.9) K/mcL BMP 09/02/18 09/03/18 11:53 06:09 Sodium 150 H 149 H Potassium 3.4 L 3.8 Chloride 116 H 114 H Carbon Dioxide 28 29 BUN 41 H 41 H Creatinine 1.35 H 1.35 H Glucose 115 H 106 H Calcium 7.7 L 7.9 L - ABG Interpretation ABG results: ABG ABG pH 7.47 pH Units (7.32-7.45) H 09/01/18 20:56 ABG pCO2 40 mmHg (35-45) 09/01/18 20:56 ABG pO2 70 mmHg (85-104) L 09/01/18 20:56 ABG O2 Saturation 95 % (95-98) 09/01/18 20:56 PT/INR, D-dimer PT 11.9 Seconds (9.4-12.1) 09/01/18 21:28 - Impressions Impressions Abdomen/Pelvis CT 09/03/18 09:51 IMPRESSION: 1. Asymmetric wall thickening involving the sigmoid colon, similar to the prior exam. Colonoscopy follow-up should be considered to evaluate for underlying neoplasm. 2. Persistent dilated stool-filled rectum up to 9 cm compatible with fecal impaction. 3. No other dilated loops of bowel. 4. Increasing consolidation and atelectasis in the left lower lobe. D/ / 09/03/2018 11:07:18 Cheikh Umana MD / haile Interpreting Provider: Cheikh Umana MD Consult Discharge Plan - Plan Referrals: NONE,PCP [Primary Care Provider] - (Family said they would find patient at doctor) (8) Pneumonia Qualifiers: Pneumonia type: due to unspecified organism Laterality: unspecified laterality Lung location: unspecified part of lung Qualified Code(s): J18.9 - Pneumonia, unspecified organism (9) Sepsis Qualifiers: Sepsis type: sepsis due to unspecified organism Qualified Code(s): A41.9 - Sepsis, unspecified organism (10) UTI (urinary tract infection) Qualifiers: Urinary tract infection type: site unspecified Hematuria presence: without hematuria Qualified Code(s): N39.0 - Urinary tract infection, site not specified (11) Alzheimer's dementia with behavioral disturbance Qualifiers: Alzheimer's disease onset: late-onset Qualified Code(s): G30.1 - Alzheimer's disease with late onset; F02.81 - Dementia in other diseases classified elsewhere with behavioral disturbance
[2018-09-04] MEDS: Piperacillin/Tazobactam 3.375 GM in 0.9 % Sodium Chloride Mini Bag 100 ML IVPB SCH ×2 (00:59→07:42)
[2018-09-04 06:28] LABS: Basophils % 0.1 %; Hematocrit 35.5 % (37.5-50.1); Hemoglobin 12.1 g/dL (12.9-16.9); Immature Granulocytes % 1.5 % (0-4); Lymphocytes # 0.7 K/mcL (0.6-4.6); Lymphocytes % 10.8 %; Mean Corpuscular HGB Conc 34.1 g/dL (31.6-35.5); Mean Corpuscular Hemoglobin 29.1 pg (28.0-33.3); Mean Corpuscular Volume 85.3 fL (83.0-100.0); Mean Platelet Volume 10.9 fL (9.4-12.4); Monocytes # 0.2 K/mcL (0.0-1.3); Monocytes % 2.7 %; Neutrophils # 5.8 K/mcL (1.6-8.9); Platelet Count 128 K/mcL (140-400); Red Blood Count 4.16 M/mcL (4.19-5.50); Red Cell Distribution Width 14.4 % (11.5-14.5); Segmented Neutrophils % 84.9 %
[2018-09-04 07:03] LABS: BUN/Creatinine Ratio 30 (6-26); Blood Urea Nitrogen 31 mg/dL (8-23); Calcium 7.6 mg/dL (8.6-10.3); Carbon Dioxide 24 mEq/L (23-29); Chloride 115 mEq/L (98-107); Glucose 111 mg/dL (70-105); Osmolality,Calculated 311 (280-300); Potassium 3.2 mEq/L (3.5-5.1); Sodium 147 mEq/L (136-145); eGFR For Non-African Americans > 60 (> 60)
[2018-09-04 07:32] LABS: Platelet Estimate Normal (Normal)
[2018-09-04] MEDS: *HR* Heparin 5,000 UNIT/ML VIAL SQ SCH ×2 (07:41→17:32)
[2018-09-04] MEDS ORDERED: Potassium Chloride 40 MEQ, Lidocaine 1% 2 ML in D5% in Water 500 ML IVPB ONE (10:41)
--- NOTE | 2018-09-04 12:11 | Internal Med Progress Note ---
Hospitalist Progress Note - Encounter Date of Encounter: 09/04/18 Time of Encounter: 10:00 - Subjective Interval History: Patient is nonverbal. Opening eyes and move 4 limbs. No fever. Breathing is better. On 2 L NC and SpO2 97%. - Exam Vitals: Temp Pulse Resp BP Pulse Ox 98.1 F 77 16 100/91 95 09/04/18 11:42 09/04/18 11:42 09/04/18 11:42 09/04/18 11:42 09/04/18 11:42 Exam: Patient is nonverbal, vitals reviewed HEENT: NC/AT, PERRL Neck: Supple, no JVD Lungs: Decreased breath sound B/L, no wheezes/rales/rhonchi Abd: Soft, BS present Ext: Ne pedal edema Neuro: Nonverbal, no facial drop, move 4 limbs on stimulation, cannot do further exam as pt cannot cooperate. - Assessment and Plan (1) JASON (acute kidney injury) Current Visit: Yes Status: Acute Assessment and Plan: Improved after hydration. Cont closely f/u renal function. (2) Dehydration Current Visit: Yes Status: Acute Assessment and Plan: Most likely due to poor intake. Continue IV fluid with D5. Follow BMP. - Improved now. (3) Diverticulitis Current Visit: Yes Status: Acute Assessment and Plan: Repeat CT abd show asymmetric wall thickness, neoplasm cannot excluded. Recommend colonoscope. Apparently pt cannot tolerate colonoscope at this point, will d/w family regarding the goal of care as pt has severe dementia already. (4) Elevated troponin Current Visit: Yes Status: Acute Assessment and Plan: Adynamic troponin elevation 0.05-0.06-0.06 with dehydration and JASON, considered demand ischemia. (5) Fecal impaction Current Visit: Yes Status: Acute Assessment and Plan: Had enema in ER, another enema in floor yesterday. CT still shows large stool burden.Pt has large amount BM after enema and Pt still has BM with lose stool after CT, will cont closely monitor pt. (6) Hypernatremia Current Visit: Yes Status: Acute Assessment and Plan: Caused by dehydration. Continue D5 IV fluid. Improved. (7) Hypoxia Current Visit: Yes Status: Acute Assessment and Plan: Most likely due to pneumonia. Continue antibiotics with Zosyn, continue supportive treatment. (8) Pneumonia Current Visit: Yes Status: Acute Assessment and Plan: Suspect aspiration pneumonia. Patient was placed on Zosyn. Blood/urine culture no growth so far, will switch to unasyn. - Continue supportive treatment - Speech therapy consult appreciated. Swallow evaluation done, diet started per recommendation. (9) Sepsis Current Visit: Yes Status: Acute Assessment and Plan: Patient to meet sepsis criteria with tachycardia, fever, infection source likely pneumonia. Less likely UTI. - IV fluid started from ER - Lactate 2.2-1.7 - Change abx to unasyn. - Follow blood and urine culture - No further fever or tachycardia, consider sepsis resolved. (10) UTI (urinary tract infection) Current Visit: Yes Status: Acute Assessment and Plan: As above. Urine culture negative, change abx to unasyn. (11) Alzheimer's dementia with behavioral disturbance Current Visit: No Status: Acute Assessment and Plan: We will consult PT OT, resume home medication. - Time Spent with Patient Total time spent is greater than 50% in coordination of care (as documented) at patient's floor/unit and/or counseling patient: Internal Medicine: Result - Labs CBC & Chem 7: 09/04/18 06:22 09/04/18 06:22 Labs: Short CBC 09/04/18 Range/Units 06:22 WBC 6.8 (4.3-11.1) K/mcL Hgb 12.1 L (12.9-16.9) g/dL Hct 35.5 L (37.5-50.1) % Plt Count 128 L (140-400) K/mcL Neutrophils # 5.8 (1.6-8.9) K/mcL BMP 09/04/18 06:22 Sodium 147 H Potassium 3.2 L Chloride 115 H Carbon Dioxide 24 BUN 31 H Creatinine 1.05 Glucose 111 H Calcium 7.6 L - ABG Interpretation ABG results: ABG ABG pH 7.47 pH Units (7.32-7.45) H 09/01/18 20:56 ABG pCO2 40 mmHg (35-45) 09/01/18 20:56 ABG pO2 70 mmHg (85-104) L 09/01/18 20:56 ABG O2 Saturation 95 % (95-98) 09/01/18 20:56 PT/INR, D-dimer PT 11.9 Seconds (9.4-12.1) 09/01/18 21:28 - Impressions Impressions Echocardiogram 09/02/18 01:31 Impressions: Technically challenging study - patient unable to cooperate with exam. Grossly, LV systolic function appears low normal but is not well seen in most views. Indeterminate LV diastolic function. RV size is foreshortened. Grossly function is normal. Valves were not well visualized and Doppler interrogations not optimal. Consider repeat study when patient is able to cooperate with exam. Left Ventricular Wall Motion: Rest Echo Findings The apex, apical inferior, mid inferior, basal inferior, apical anterior, mid anterior, basal anterior, apical septal, mid inferior septal, basal inferior septal, apical lateral, mid anterior lateral and basal anterior lateral bhagat were not visualized. All other wall segments showed normal motion. Findings: Study Quality * Technically challenging study - patient unable to cooperate with exam. ECG Findings * Normal sinus rhythm. Artifact seen during tracing. Left Ventricle * Grossly, LV systolic function appears low normal. * Normal LV chamber size, wall thickness and function. * Indeterminate diastolic function. Right Ventricle * RV size is foreshortened. Grossly function is normal. Left Atrium * Left atrium is not well visualized. Right Atrium * Right atrium is not well visualized. Aortic Valve * Aortic valve not well visualized. * No aortic regurgitation. * Suboptimal Doppler evaluation. Mitral Valve * No mitral regurgitation. * Mitral valve not well visualized. * No evidence for mitral stenosis. However, Doppler not optimally obtained. Tricuspid Valve * Tricuspid valve not well visualized. * No tricuspid regurgitation. Pulmonic Valve * Pulmonic valve is not well visualized. * Doppler not optimally obtained. Pulmonary Artery * Pulmonary artery not well visualized. Aorta * Normally sized aortic root. Pericardium * There is no pericardial effusion present. Interatrial Septum * Interatrial septum not well evaluated. IVC * The IVC is not well evaluated. Consult Discharge Plan - Plan Referrals: NONE,PCP [Primary Care Provider] - (Family said they would find patient at doctor) (8) Pneumonia Qualifiers: Pneumonia type: due to unspecified organism Laterality: unspecified laterality Lung location: unspecified part of lung Qualified Code(s): J18.9 - Pneumonia, unspecified organism (9) Sepsis Qualifiers: Sepsis type: sepsis due to unspecified organism Qualified Code(s): A41.9 - Sepsis, unspecified organism (10) UTI (urinary tract infection) Qualifiers: Urinary tract infection type: site unspecified Hematuria presence: without hematuria Qualified Code(s): N39.0 - Urinary tract infection, site not specified (11) Alzheimer's dementia with behavioral disturbance Qualifiers: Alzheimer's disease onset: late-onset Qualified Code(s): G30.1 - Alzheimer's disease with late onset; F02.81 - Dementia in other diseases classified elsewhere with behavioral disturbance
[2018-09-04] MEDS: D5% in Water 1,000 ML IVC SCH (13:41)
[2018-09-04] MEDS: Ampicillin/Sulbactam 3,000 MG in 0.9 % Sodium Chloride Mini Bag 100 ML IVPB SCH ×2 (17:31→23:13)
[2018-09-04] MEDS: OLANZapine 5 MG TAB.RAPDIS PO SCH (20:44)
[2018-09-05] MEDS: D5% in Water 1,000 ML IVC SCH ×3 (02:11→16:25)
[2018-09-05 04:12] LABS: Basophils % 0.2 %; Hematocrit 33.4 % (37.5-50.1); Hemoglobin 11.3 g/dL (12.9-16.9); Immature Granulocytes % 1.2 % (0-4); Lymphocytes # 0.8 K/mcL (0.6-4.6); Lymphocytes % 14.2 %; Mean Corpuscular HGB Conc 33.8 g/dL (31.6-35.5); Mean Corpuscular Volume 85.6 fL (83.0-100.0); Mean Platelet Volume 11.3 fL (9.4-12.4); Monocytes # 0.2 K/mcL (0.0-1.3); Monocytes % 3.7 %; Neutrophils # 4.6 K/mcL (1.6-8.9); Platelet Count 149 K/mcL (140-400); Red Cell Distribution Width 14.1 % (11.5-14.5); Segmented Neutrophils % 80.7 %
[2018-09-05 04:33] LABS: Platelet Estimate Normal (Normal)
[2018-09-05 04:34] LABS: BUN/Creatinine Ratio 23 (6-26); Blood Urea Nitrogen 20 mg/dL (8-23); Calcium 7.5 mg/dL (8.6-10.3); Carbon Dioxide 24 mEq/L (23-29); Chloride 111 mEq/L (98-107); Glucose 144 mg/dL (70-105); Osmolality,Calculated 301 (280-300); Potassium 2.9 mEq/L (3.5-5.1); Sodium 143 mEq/L (136-145); eGFR For Non-African Americans > 60 (> 60)
[2018-09-05] MEDS: Ampicillin/Sulbactam 3,000 MG in 0.9 % Sodium Chloride Mini Bag 100 ML IVPB SCH ×4 (05:09→23:48)
[2018-09-05] MEDS: *HR* Heparin 5,000 UNIT/ML VIAL SQ SCH ×2 (05:09→17:23)
[2018-09-05] MEDS ORDERED: Potassium Chloride 40 MEQ, Lidocaine 1% 2 ML in D5% in Water 500 ML IVPB ONE (05:38)
[2018-09-05] MEDS ORDERED: Potassium Chloride Elixir 20 MEQ/15 ML UDC PO ONE (07:47)
[2018-09-05] MEDS: OLANZapine 5 MG TAB.RAPDIS PO SCH ×2 (08:51→22:25)
[2018-09-05] MEDS: Lactobacillus 1 EACH CAP.SPRINK PO SCH (08:51)
--- NOTE | 2018-09-05 13:33 | Internal Med Progress Note ---
Hospitalist Progress Note - Encounter Date of Encounter: 09/05/18 Time of Encounter: 09:00 - Subjective Interval History: Patient is nonverbal. Keep sleepy. Opening eyes occasionally and move 4 limbs. No fever. Breathing is better, looks in NAD. On 2 L NC and SpO2 97%. - Exam Vitals: Temp Pulse Resp BP Pulse Ox 100.0 F H 86 22 117/84 90 09/05/18 10:54 09/05/18 12:51 09/05/18 12:51 09/05/18 10:54 09/05/18 12:51 Exam: Patient is nonverbal, vitals reviewed HEENT: NC/AT, PERRL Neck: Supple, no JVD Lungs: Decreased breath sound B/L, no wheezes/rales/rhonchi Abd: Soft, BS present Ext: Ne pedal edema Neuro: Nonverbal, no facial drop, move 4 limbs on stimulation, cannot do further exam as pt cannot cooperate. - Assessment and Plan (1) JASON (acute kidney injury) Current Visit: Yes Status: Acute Assessment and Plan: Resolved after IVF. Cont closely f/u renal function. (2) Dehydration Current Visit: Yes Status: Acute Assessment and Plan: Most likely due to poor intake. Resolved now after IVF. Decrease IV fluid rate, encourage po hydration. Follow BMP. - Improved now. (3) Diverticulitis Current Visit: Yes Status: Acute Assessment and Plan: Repeat CT abd show asymmetric wall thickness, neoplasm cannot excluded. Recommend colonoscope. Apparently pt cannot tolerate colonoscope at this point, Discuss with pt's daughter at bedside, state pt's is POA and will talk to her mother later. (4) Elevated troponin Current Visit: Yes Status: Acute Assessment and Plan: Adynamic troponin elevation 0.05-0.06-0.06 with dehydration and JASON, considered demand ischemia. (5) Fecal impaction Current Visit: Yes Status: Acute Assessment and Plan: Had enema in ER, another enema in floor yesterday. CT still shows large stool burden. Pt has large amount BM after enema and Pt still has BM with lose stool after CT, will cont closely monitor pt. - Add docusate and milk of magnesium PO for constipation. (6) Hypernatremia Current Visit: Yes Status: Acute Assessment and Plan: Caused by dehydration. Continue D5 IV fluid. Improved. (7) Hypoxia Current Visit: Yes Status: Acute Assessment and Plan: Most likely due to pneumonia. Continue antibiotics with unasyn, continue supportive treatment. (8) Pneumonia Current Visit: Yes Status: Acute Assessment and Plan: Suspect aspiration pneumonia. Blood/urine culture no growth so far, will switch to unasyn. - Continue supportive treatment - Speech therapy consult appreciated. Swallow evaluation done, diet started per recommendation. (9) Sepsis Current Visit: Yes Status: Acute Assessment and Plan: Patient to meet sepsis criteria with tachycardia, fever, infection source likely pneumonia. Less likely UTI. - IV fluid started from ER - Lactate 2.2-1.7 - Change abx to unasyn. - Follow blood and urine culture - No further fever or tachycardia, consider sepsis resolved. (10) UTI (urinary tract infection) Current Visit: Yes Status: Acute Assessment and Plan: As above. Urine culture negative, change abx to unasyn. (11) Alzheimer's dementia with behavioral disturbance Current Visit: No Status: Acute Assessment and Plan: We will consult PT OT, resume home medication. (12) Goals of care, counseling/discussion Current Visit: Yes Status: Acute Assessment and Plan: Pt has severe dementia, severe dehydration on admission. Now dehydration resolved but pt still has poor mental status and poor intake. Needs further d/w family regarding goal of care. - Consult acid remover for nutrition supplement. - Consider consult palliative care for goal of care. DVT Prophylaxis: Heparin SC - Time Spent with Patient Total time spent is greater than 50% in coordination of care (as documented) at patient's floor/unit and/or counseling patient: 30 min 25 - 35 minutes Plan of Care Discussed with: patient Internal Medicine: Result - Labs CBC & Chem 7: 09/05/18 03:50 09/05/18 03:50 Labs: Short CBC 09/05/18 Range/Units 03:50 WBC 5.7 (4.3-11.1) K/mcL Hgb 11.3 L (12.9-16.9) g/dL Hct 33.4 L (37.5-50.1) % Plt Count 149 (140-400) K/mcL Neutrophils # 4.6 (1.6-8.9) K/mcL BMP 09/05/18 03:50 Sodium 143 Potassium 2.9 L Chloride 111 H Carbon Dioxide 24 BUN 20 Creatinine 0.86 Glucose 144 H Calcium 7.5 L - ABG Interpretation ABG results: ABG ABG pH 7.47 pH Units (7.32-7.45) H 09/01/18 20:56 ABG pCO2 40 mmHg (35-45) 09/01/18 20:56 ABG pO2 70 mmHg (85-104) L 09/01/18 20:56 ABG O2 Saturation 95 % (95-98) 09/01/18 20:56 PT/INR, D-dimer PT 11.9 Seconds (9.4-12.1) 09/01/18 21:28 - Impressions Impressions Abdomen/Pelvis CT 09/03/18 09:51 IMPRESSION: 1. Asymmetric wall thickening involving the sigmoid colon, similar to the prior exam. Colonoscopy follow-up should be considered to evaluate for underlying neoplasm. 2. Persistent dilated stool-filled rectum up to 9 cm compatible with fecal impaction. 3. No other dilated loops of bowel. 4. Increasing consolidation and atelectasis in the left lower lobe. D/ / 09/03/2018 11:07:18 Cheikh Umana MD / haile Interpreting Provider: Cheikh Umana MD Consult Discharge Plan - Plan Referrals: NONE,PCP [Primary Care Provider] - (Family said they would find patient at doctor) (8) Pneumonia Qualifiers: Pneumonia type: due to unspecified organism Laterality: unspecified laterality Lung location: unspecified part of lung Qualified Code(s): J18.9 - Pneumonia, unspecified organism (9) Sepsis Qualifiers: Sepsis type: sepsis due to unspecified organism Qualified Code(s): A41.9 - Sepsis, unspecified organism (10) UTI (urinary tract infection) Qualifiers: Urinary tract infection type: site unspecified Hematuria presence: without hematuria Qualified Code(s): N39.0 - Urinary tract infection, site not specified (11) Alzheimer's dementia with behavioral disturbance Qualifiers: Alzheimer's disease onset: late-onset Qualified Code(s): G30.1 - Alzheimer's disease with late onset; F02.81 - Dementia in other diseases classified elsewhere with behavioral disturbance
--- NOTE | 2018-09-05 16:01 | Palliative - Consult Note ---
Date of Encounter: 09/05/18 Time of Encounter: 15:15 - Assessment and Plan (1) Delirium due to general medical condition Current Visit: No Status: Acute Assessment and plan: Baseline dementia. (2) Dementia Current Visit: No Status: Chronic Qualifiers: Dementia type: Alzheimer's disease Alzheimer's disease onset: unspecified onset Dementia behavioral disturbance: without behavioral disturbance Qualified Code(s): G30.9 - Alzheimer's disease, unspecified; F02.80 - Dementia in other diseases classified elsewhere without behavioral disturbance (3) Altered mental status Current Visit: No Status: Chronic Assessment and plan: Patient as baseline per daughter's report via telephone. Qualifiers: Altered mental status type: unspecified Qualified Code(s): R41.82 - Altered mental status, unspecified (4) Alzheimer's dementia with behavioral disturbance Current Visit: No Status: Acute Qualifiers: Alzheimer's disease onset: late-onset Qualified Code(s): G30.1 - Alzhei selvin's disease with late onset; F02.81 - Dementia in other diseases classified elsewhere with behavioral disturbance (5) Goals of care, counseling/discussion Current Visit: Yes Status: Acute Assessment and plan: Conducted long discussion of overall poor prognosis with patient's daughter. Denice requested family meeting tomorrow at 12 noon. Patient's children have agreed that more help needed in the home. Reports never had PCP so had difficulty trying to arrange home health. There has been an increase in family strain as patient's has been trying to care for patient independently, despite her own failing health. Patient has lost 50 pounds as they cannot get him to eat/drink. Daughter verbalized understanding of prognosis for repeat infections and repeat hospital stays. Reports at family meeting need to cover financial implication of hospice care, DME can provide, Nursing can provide, and thorough explanation of overall prognosis. May benefit for inclusion of SW. Daughter reports patient's can be very strong willed and short tempered. Daughter reports siblings understand overall poor prognosis. Requests to take into consideration that patient's sister with same condition a few days ago at [facility]. Palliative-CN HPI - Data of Consult Patient: new to practice Consult date: 09/05/18 Requesting Physician: Luann Pérez MD Primary Care Provider: PCP NONE - Consult Narrative Palliative Care/Comfort Measures: Palliative care Reason for consult: Goals of care History of present illness: Mr. Ozuna is a 78 year old male Arrived to [place] [facility] on 09/01/18 for change in mental status. Admitted and medically managed for: UTI, Pneumonia, Sepsis, Fecal impaction, Respiratory distress, Hypoxia, Elevated troponin, Hypernatremia, Hyperchloremia, Dehydration, and JASON. PMH: Dementia (Alzheimers Disease). Chest x-ray showing: Left retrocardiac opacity, likely pneumonia; Moderate to marked distention of large bowel in the upper abdomen by gas and stool. CT of brain without contrast showing: No acute intracranial abnormality and Cerumen within the external auditory canals bilaterally. CT abdomen and pelvis without contrast, showing: Very large amount of stool within the rectum, compatible with rectal impaction; Within the distal aspect of the descending colon, there is focal, mildly eccentric mural thickening with surrounding fat stranding; That could be artifactual secondary to incomplete distention, but acute diverticulitis and even a colonic mass are considered as well; After resolution of acute symptoms, follow-up scan or direct visualization is recommended; There is gaseous dilation of the large bowel more proximally, with a moderate to large amount of stool, most suggestive of ileus and constipation; No evidence of small bowel obstruction; Dense left lower lobe consolidation, with patchy consolidation also identified within the lingula and right lower lobe, compatible with multifocal pneumonia or aspiration. EKG showing: Significant artifact; Rhythm appears regular. CT scale of chest without contrast, showing: COPD with bibasilar infiltrates, left worse than right, with a small left pleural effusion; A 2.6 cm x 1.9 cm complex cystic mass inferior aspect left lobe of the thyroid, for which nonemergent thyroid ultrasound is recommended for complete assessment. Patient is nonverbal at baseline. CT abdomen/chest without contrast: Asymmetric wall thickening involving the sigmoid colon, similar to the prior exam; Persistent dilated stool-filled rectum up to 9 cm compatible with fe jacinda impaction; No other dilated loops of bowel; and Increasing consolidation and atelectasis in the left lower lobe. Patient had improved kidney function post hydration. Found to not be a candidate for colonoscopy. Recommend supportive care. Palliative care consulted for Goals of care. Patient lying in bed with eyes closed upon arrival for assessment. Did not respond to verbal stimulation. Patient closed eyes tighter to tactile stimulation. No family present at bedside. CC: Luann Pérez MD - Time Spent with Patient Time: Total time spent is greater than 50% in coordination of care (as documented) at patient's floor/unit and/or counseling patient: Time with patient: 45 minutes Past Med Surg Social Fam HX - Past Medical History Medical history: dementia, other Psychiatric history: no psych history - Past Surgical History Surgical History: no surgical history - Social History Smoking Status: Unknown if ever smoked Smokeless Tobacco Status: No Alcohol use: unknown Drug use: unknown - Family History Sister Hx Family Cardiac Disorders: Yes Hx Family Endocrine Disorder: Yes (DM) Hx Family Neurologic Disorders: Yes (alz) Brother Hx Family Cardiac Disorders: Yes Medications and Allergies OLANZapine [Zyprexa Zydis] 5 mg PO BID #60 tab.rapdis 04/01/17 [Rx] Allergy/AdvReac Type Severity Reaction Status Date / Time No Known Allergies Allergy Verified 03/29/17 12:40 ROS unobtainable: due to mental status Palliative Care-Exam - Constitutional Vitals: Temp Pulse Resp BP Pulse Ox 100.9 F H 89 20 132/86 94 09/05/18 15:54 09/05/18 15:54 09/05/18 15:54 09/05/18 15:54 09/05/18 15:54 General appearance: Present: thin Exam: cachetic. - Head Head Exam: Present: normal inspection - Eye Eye exam: Present: normal appearance - ENT ENT exam: Present: mucous membranes dry, normal external ear exam - Expanded ENT Exam Mouth Exam: Absent: drooling - Neck Neck exam: Present: normal inspection. Absent: tenderness - Respiratory Respiratory exam: Present: rhonchi. Absent: accessory muscle use - Cardiovascular Cardiovascular exam: Present: +S1, +S2 - Expanded Cardiovascular Exam Peripheral pulses: 1+: Radial (L), Radial (R), Posterior Tibialis (L), Posterior Tibialis (R), Dorsalis Pedis (L) PM, Dorsalis Pedis (R) PM - GI/Abdominal Exam GI/Abdominal exam: Present: diminished bowel sounds, soft. Absent: tenderness - Rectal Rectal Exam: Present: deferred - Catheter Type: Urethral (Giron) - Extremities Exam Extremities exam: Present: normal inspection. Absent: calf tenderness, pedal edema - Neurological Exam Neurological exam: Present: altered. Absent: oriented X3, facial droop - Expanded Neurological Exam Patient oriented to: Absent: person, place, time Coma Scale Eye Opening: To Pain Coma Scale Motor Response: Localizes to Pain Coma Scale Verbal Response: None Coma Scale Total: 8 - Psychiatric Psychiatric exam: Present: flat affect - Skin Skin exam: Present: dry, intact, warm Internal Medicine - CN: Reslt - Labs CBC & Chem 7: 09/05/18 03:50 09/05/18 13:12 Labs: Short CBC 09/05/18 Range/Units 03:50 WBC 5.7 (4.3-11.1) K/mcL Hgb 11.3 L (12.9-16.9) g/dL Hct 33.4 L (37.5-50.1) % Plt Count 149 (140-400) K/mcL Neutrophils # 4.6 (1.6-8.9) K/mcL BMP 09/05/18 09/05/18 03:50 13:12 Sodium 143 Potassium 2.9 L 4.3 D Chloride 111 H Carbon Dioxide 24 BUN 20 Creatinine 0.86 Glucose 144 H Calcium 7.5 L - ABG Interpretation ABG results: ABG ABG pH 7.47 pH Units (7.32-7.45) H 09/01/18 20:56 ABG pCO2 40 mmHg (35-45) 09/01/18 20:56 ABG pO2 70 mmHg (85-104) L 09/01/18 20:56 ABG O2 Saturation 95 % (95-98) 09/01/18 20:56 PT/INR, D-dimer PT 11.9 Seconds (9.4-12.1) 09/01/18 21:28 - Impressions Impressions Abdomen/Pelvis CT 09/03/18 09:51 IMPRESSION: 1. Asymmetric wall thickening involving the sigmoid colon, similar to the prior exam. Colonoscopy follow-up should be considered to evaluate for underlying neoplasm. 2. Persistent dilated stool-filled rectum up to 9 cm compatible with fecal impaction. 3. No other dilated loops of bowel. 4. Increasing consolidation and atelectasis in the left lower lobe. D/ / 09/03/2018 11:07:18 Cheikh Umana MD / haile Interpreting Provider: Cheikh Umana MD Consult Discharge Plan - Plan Referrals: NONE,PCP [Primary Care Provider] - (Family said they would find patient at doctor) Palliative Quality Palliative Quality: Screen for Code Status: Yes, Screen for Goals of Care: Yes, Screen for Pain: Yes, If Pain Regimen Started, Initiate Bowel Regimen: Yes, Screen for Nausea/Vomitting: Yes Code Status: 09/01/18 21:55 CODE [Resuscitation Status: Active] [RES] Stat Comment: no CPR, no intubation. Resuscitation Status: [id number]
[2018-09-05] MEDS ORDERED: Acetaminophen 650 MG RECTAL SUPP RC ONE (23:06)
[2018-09-06 04:55] LABS: Basophils % 0.2 %; Hemoglobin 10.9 g/dL (12.9-16.9); Immature Granulocytes % 1.7 % (0-4); Lymphocytes # 0.8 K/mcL (0.6-4.6); Lymphocytes % 12.5 %; Mean Corpuscular HGB Conc 34.1 g/dL (31.6-35.5); Mean Corpuscular Hemoglobin 28.6 pg (28.0-33.3); Mean Platelet Volume 10.8 fL (9.4-12.4); Monocytes # 0.3 K/mcL (0.0-1.3); Monocytes % 5.5 %; Neutrophils # 4.8 K/mcL (1.6-8.9); Platelet Count 167 K/mcL (140-400); Red Blood Count 3.81 M/mcL (4.19-5.50); Red Cell Distribution Width 13.7 % (11.5-14.5); Segmented Neutrophils % 80.1 %
[2018-09-06 05:23] LABS: BUN/Creatinine Ratio 16 (6-26); Blood Urea Nitrogen 12 mg/dL (8-23); Calcium 7.3 mg/dL (8.6-10.3); Carbon Dioxide 27 mEq/L (23-29); Chloride 111 mEq/L (98-107); Glucose 127 mg/dL (70-105); Osmolality,Calculated 299 (280-300); Potassium 2.8 mEq/L (3.5-5.1); Sodium 144 mEq/L (136-145); eGFR For Non-African Americans > 60 (> 60)
[2018-09-06] MEDS: Ampicillin/Sulbactam 3,000 MG in 0.9 % Sodium Chloride Mini Bag 100 ML IVPB SCH ×3 (05:51→18:04)
[2018-09-06] MEDS: *HR* Heparin 5,000 UNIT/ML VIAL SQ SCH ×2 (05:52→18:03)
[2018-09-06] MEDS: OLANZapine 5 MG TAB.RAPDIS PO SCH ×2 (08:42→20:18)
[2018-09-06] MEDS: MOM Conc 10 ML UD.LIQ PO SCH (08:42)
[2018-09-06] MEDS: Lactobacillus 1 EACH CAP.SPRINK PO SCH (08:42)
[2018-09-06] MEDS: D5% in Water 1,000 ML IVC SCH (08:43)
[2018-09-06] MEDS ORDERED: Acetaminophen 650 MG RECTAL SUPP RC PRN (12:50)
[2018-09-06] MEDS ORDERED: Potassium Chloride 40 MEQ, Lidocaine 1% 2 ML in D5% in Water 500 ML IVPB ONE (12:51)
--- NOTE | 2018-09-06 12:52 | Internal Med Progress Note ---
Hospitalist Progress Note - Encounter Date of Encounter: 09/06/18 Time of Encounter: 12:52 - Subjective Interval History: Patient seen and examined. Patient not responsive to commands. Does not offer any complains. Family at bedside. - Exam Vitals: Temp Pulse Resp BP Pulse Ox 99 F 64 16 118/66 97 09/06/18 11:10 09/06/18 11:10 09/06/18 11:10 09/06/18 11:10 09/06/18 11:10 Exam: General: nonverbal, in no distress, thinly build Respiratory exam: Decreased breath sound b/l. no accessory muscle use, rales, rhonchi, wheezes Cardiovascular exam: RRR, +S1, +S2. no murmur, gallop, rubs. GI/Abdominal exam: Non-tender, Non-distended, soft, no peritoneal signs. Extremities exam: no pedal edema, warm, pulses palpable in b/l lower extremities. no calf tenderness Neurological exam: Non focal. React only to painful stimuli. Occasionally opens eye spontaneously. - Assessment and Plan (1) Alzheimer's dementia with behavioral disturbance Current Visit: No Status: Acute (2) UTI (urinary tract infection) Current Visit: Yes Status: Acute (3) Pneumonia Current Visit: Yes Status: Acute (4) Fecal impaction Current Visit: Yes Status: Acute (5) Sepsis Current Visit: Yes Status: Acute (6) Hypoxia Current Visit: Yes Status: Acute (7) Elevated troponin Current Visit: Yes Status: Acute (8) Hypernatremia Current Visit: Yes Status: Acute (9) Dehydration Current Visit: Yes Status: Acute (10) JASON (acute kidney injury) Current Visit: Yes Status: Acute (11) Diverticulitis Current Visit: Yes Status: Acute (12) Goals of care, counseling/discussion Current Visit: Yes Status: Acute - Summary of Assessment and Plan Summary of Assessment and Plan: Pneumonia - Suspect aspiration pneumonia. Blood/urine NGTD. Vanc/zosyn switched to unasyn. - Continue supportive treatment - Puree diet per Speech therapy Sepsis - Initially with tachycardia, fever, infection source likely pneumonia. Less l ikely UTI. - s/p fluid resustitiation and antibiotics - Now resolved. Alzheimer's dementia with behavioral disturbance - c/w home medication. Goals of care, counseling/discussion - Pt has severe dementia. pt still has poor mental status and poor intake. - palliative care consulted. - Patient is DNR/DNI. Will continue to treat infection and then transition to home hospice per discussion with family. Diverticulitis, fecal impaction - Repeat CT abd show asymmetric wall thickness, neoplasm cannot excluded. Recommend colonoscope. - pt cannot tolerate colonoscope at this point, Discuss with pt's daughter at bedside, state pt's is POA and will talk to her mother later. - s/p enema with large BM after. - Add docusate and milk of magnesium PO for constipation. Elevated troponin - Adynamic troponin elevation - Likely demand related along with JASON. JASON - now Resolved after IVF. Dehydration - Most likely due to poor intake and pneumonia. Resolved now after IVF. - Improved now. DVT Prophylaxis: - Heparin SC - Time Spent with Patient Total time spent is greater than 50% in coordination of care (as documented) at patient's floor/unit and/or counseling patient: Internal Medicine: Result - Labs CBC & Chem 7: 09/06/18 04:35 09/06/18 04:35 Labs: Short CBC 09/06/18 Range/Units 04:35 WBC 6.0 (4.3-11.1) K/mcL Hgb 10.9 L (12.9-16.9) g/dL Hct 32.0 L (37.5-50.1) % Plt Count 167 (140-400) K/mcL Neutrophils # 4.8 (1.6-8.9) K/mcL BMP 09/05/18 09/06/18 13:12 04:35 Sodium 144 Potassium 4.3 D 2.8 L D Chloride 111 H Carbon Dioxide 27 BUN 12 Creatinine 0.75 Glucose 127 H Calcium 7.3 L - ABG Interpretation ABG results: ABG ABG pH 7.47 pH Units (7.32-7.45) H 09/01/18 20:56 ABG pCO2 40 mmHg (35-45) 09/01/18 20:56 ABG pO2 70 mmHg (85-104) L 09/01/18 20:56 ABG O2 Saturation 95 % (95-98) 09/01/18 20:56 PT/INR, D-dimer PT 11.9 Seconds (9.4-12.1) 09/01/18 21:28 Consult Discharge Plan - Plan Referrals: NONE,PCP [Primary Care Provider] - (Family said they would find patient at doctor) (1) Alzheimer's dementia with behavioral disturbance Qualifiers: Alzheimer's disease onset: late-onset Qualified Code(s): G30.1 - Alzheimer's disease with late onset; F02.81 - Dementia in other diseases classified elsewhere with behavioral disturbance (2) UTI (urinary tract infection) Qualifiers: Urinary tract infection type: site unspecified Hematuria presence: without hematuria Qualified Code(s): N39.0 - Urinary tract infection, site not specified (3) Pneumonia Qualifiers: Pneumonia type: due to unspecified organism Laterality: unspecified lateralit y Lung location: unspecified part of lung Qualified Code(s): J18.9 - Pneumonia, unspecified organism (5) Sepsis Qualifiers: Sepsis type: sepsis due to unspecified organism Qualified Code(s): A41.9 - Sepsis, unspecified organism
--- NOTE | 2018-09-06 13:47 | Palliative Progress Note ---
Date of Encounter: 09/06/18 Time of Encounter: 12:00 - Assessment and plan (1) Goals of care, counseling/discussion Current Visit: Yes Status: Acute Assessment and plan: 30 minutes meeting today with pt's Teena, daughters Denice and Rose, son Singh and grandximena Narayanan. Discussed current medical conditions, trajectory of illness, overall poor prognosis, treatment options and goal of care. As per , pt was able to transfer and walk few steps until few weeks ago, but she had noticed a gradual deterioration of his functional status. Pt is non verbal, and have a very poor oral intake. Discussed that most of the symptoms ma y be complications of end stage dementia. Discussed with the family that pt is hospice eligible. Explained the philosophy of hospice and hospice services. Family agreed with hospice, with the plan for home hospice once pt stable for discharge. Discussed that pt may stop eating completely and that the best course of action is to encourage him and hand feed, and make sure pt is comfortable. Plan discussed with hospitalist Dr. Feliz. Referral called to [facility]. (2) Alzheimer's dementia Current Visit: Yes Status: Acute Assessment and plan: Hx of Alzeimer's dementia. Patient is currently at baseline. (3) UTI (urinary tract infection) Current Visit: Yes Status: Acute Assessment and plan: On Unasyn day #3, patient is unable to tolerate oral therapy, will need to complete course of IV antibiotics before discharge. Qualifiers: Urinary tract infection type: site unspecified Hematuria presence: without hematuria Qualified Code(s): N39.0 - Urinary tract infection, site not specified (4) Fecal impaction Current Visit: Yes Status: Acute Assessment and plan: Patient have had several big BM and loose stool. Abdomen is soft, no mass felt (5) JASON (acute kidney injury) Current Visit: Yes Status: Acute Assessment and plan: Probably due to dehydration. Resolved with IVF. - Time Spent With Patient Total time spent is greater than 50% in coordination of care (as documented) at patient's floor/unit and/or counseling patient: Greater than 35 minutes - Subjective Interval history: Patient was lethargic, poorly responsive to tactile or verbal stimuli. In no acute distress. - Constitutional Vitals: Abnormal lab results RBC 3.81 M/mcL (4.19-5.50) L 09/06/18 04:35 Hgb 10.9 g/dL (12.9-16.9) L 09/06/18 04:35 Hct 32.0 % (37.5-50.1) L 09/06/18 04:35 Band Neutrophils % 26.0 % (0-4) H 09/03/18 06:09 Polychromasia 1+ (Not Present) A 09/02/18 03:21 Microcytosis Present (Not Present) A 09/02/18 03:21 APTT 40.7 Seconds (26.0-36.0) H 09/01/18 21:28 ABG pH 7.47 pH Units (7.32-7.45) H 09/01/18 20:56 ABG pO2 70 mmHg (85-104) L 09/01/18 20:56 ABG HCO3 29 mEq/L (21-27) H 09/01/18 20:56 ABG Total CO2 30 mEq/L (20-26) H 09/01/18 20:56 ABG Base Excess 5 mEq/L (-2 to 3) H 09/01/18 20:56 Potassium 2.8 mEq/L (3.5-5.1) L D 09/06/18 04:35 Chloride 111 mEq/L (98-107) H 09/06/18 04:35 Glucose 127 mg/dL (70-105) H 09/06/18 04:35 POC Glucose 107 mg/dL (70-99) H 09/06/18 11:18 Calcium 7.3 mg/dL (8.6-10.3) L 09/06/18 04:35 Direct Bilirubin 0.4 mg/dL (0.0-0.2) H 09/01/18 21:28 AST 41 Units/L (13-39) H 09/01/18 21:28 Troponin I 0.06 ng/mL (< 0.04) H* 09/02/18 10:40 B-Natriuretic Peptide 134 pg/mL (Less than 100) H 09/01/18 21:28 Urine Color Kenzie (Yellow) A 09/01/18 20:42 Urine Clarity Turbid (Clear) A 09/01/18 20:42 Ur Specific [place] > 1.030 (1.010-1.025) H 09/01/18 20:42 Urine Protein 100 mg/dL (Neg-Trace) H 09/01/18 20:42 Urine Ketones Trace mg/dL (Negative) H 09/01/18 20:42 Urine Blood Moderate (Negative) H 09/01/18 20:42 Urine Nitrite Positive (Negative) A 09/01/18 20:42 Urine Bilirubin Moderate (Negative) H 09/01/18 20:42 Ur Leukocyte Esterase Small (Negative) H 09/01/18 20:42 Urine Microscopic RBC 3-5 per hpf (0-3) H 09/01/18 20:42 Urine Microscopic WBC 15-30 per hpf (0-3) H 09/01/18 20:42 Ur Squamous Epith Cells Many per lpf (None-Few) H 09/01/18 20:42 Urine Bacteria Many per hpf (None-Few) H 09/01/18 20:42 Granular Casts Many per lpf (None Seen) H 09/01/18 20:42 Ur Culture Indicated? NO. (NO) A 09/01/18 20:42 Exam: Vitals reviewed General appearance: cachetic, lethargic, in no acute distress Eyes: nonicteric, Neck: supple, no lymphadenopathy, no JVD Chest: bilateral: normal breath sounds, normal effort Cardiovascular: regular rate and rhythm Gastrointestinal: soft, non-tender, non-distended Integumentary: normal Extremities: no cyanosis, no edema, no clubbing Musculoskeletal: contracted at knees and elbows, no edema Neurologic: moaning, not opening eyes. Palliative Quality Palliative Quality: Screen for Code Status: Yes, Screen for Goals of Care: Yes, Screen for Pain: Yes, If Pain Regimen Started, Initiate Bowel Regimen: Yes, Screen for Nausea/Vomitting: Yes Code Status: 09/01/18 21:55 CODE [Resuscitation Status: Active] [RES] Stat Comment: no CPR, no intubation. Resuscitation Status: [id number] - Labs CBC & Chem 7: 09/06/18 04:35 09/06/18 04:35 Labs: Laboratory Results - last 24 hr 09/05/18 09/05/18 09/06/18 13:12 23:57 04:35 WBC 6.0 RBC 3.81 L Hgb 10.9 L Hct 32.0 L MCV 84.0 MCH 28.6 MCHC 34.1 RDW 13.7 Plt Count 167 MPV 10.8 Immature Gran % 1.7 Seg Neutrophils % 80.1 Lymphocytes % 12.5 Monocytes % 5.5 Eosinophils % 0.0 Basophils % 0.2 Neutrophils # 4.8 Lymphocytes # 0.8 Monocytes # 0.3 Eosinophils # 0.0 Basophils # 0.0 Sodium Potassium 4.3 D Chloride Carbon Dioxide BUN Creatinine Est GFR ( Amer) Est GFR (Non-Af Amer) BUN/Creatinine Ratio Glucose POC Glucose 122 H Calculated Osmolality Calcium 09/06/18 09/06/18 04:35 11:18 WBC RBC Hgb Hct MCV MCH MCHC RDW Plt Count MPV Immature Gran % Seg Neutrophils % Lymphocytes % Monocytes % Eosinophils % Basophils % Neutrophils # Lymphocytes # Monocytes # Eosinophils # Basophils # Sodium 144 Potassium 2.8 L D Chloride 111 H Carbon Dioxide 27 BUN 12 Creatinine 0.75 Est GFR ( Amer) > 60 Est GFR (Non-Af Amer) > 60 BUN/Creatinine Ratio 16 Glucose 127 H POC Glucose 107 H Calculated Osmolality 299 Calcium 7.3 L - ABG Interpretation ABG results: ABG ABG pH 7.47 pH Units (7.32-7.45) H 09/01/18 20:56 ABG pCO2 40 mmHg (35-45) 09/01/18 20:56 ABG pO2 70 mmHg (85-104) L 09/01/18 20:56 ABG O2 Saturation 95 % (95-98) 09/01/18 20:56 PT/INR, D-dimer PT 11.9 Seconds (9.4-12.1) 09/01/18 21:28 Consult Discharge Plan - Plan Referrals: NONE,PCP [Primary Care Provider] - (Family said they would find patient at doctor)
[2018-09-07] MEDS: Ampicillin/Sulbactam 3,000 MG in 0.9 % Sodium Chloride Mini Bag 100 ML IVPB SCH ×3 (00:06→15:40)
[2018-09-07 04:34] LABS: BUN/Creatinine Ratio 13 (6-26); Blood Urea Nitrogen 10 mg/dL (8-23); Calcium 7.4 mg/dL (8.6-10.3); Carbon Dioxide 27 mEq/L (23-29); Chloride 111 mEq/L (98-107); Glucose 117 mg/dL (70-105); Osmolality,Calculated 298 (280-300); Potassium 3.2 mEq/L (3.5-5.1); Sodium 144 mEq/L (136-145); eGFR For Non-African Americans > 60 (> 60)
[2018-09-07] MEDS: *HR* Heparin 5,000 UNIT/ML VIAL SQ SCH (06:33)
--- NOTE | 2018-09-07 09:45 | Palliative Progress Note ---
Date of Encounter: 09/07/18 Time of Encounter: 09:38 - Assessment and plan (1) Goals of care, counseling/discussion Current Visit: Yes Status: Acute Assessment and plan: No changes on GOC, family is looking forward for patient returning home with hospice. Daughter Rose asked more details about the hospice admission process. All questions were answered to her satisfaction. Dr Feliz stated pt is ready for discharge. Called [facility] and confirmed that all equipment can be delivered today at home. Patient is comfortable, and does have any symptom management needs at this time. Will order comfort pack with Dulcolax supp, Tylenol supp for pain. (2) Alzheimer's dementia Current Visit: Yes Status: Acute Assessment and plan: Hx of Alzeimer's dementia. Patient is currently at baseline. On olanzapine 5mg po BID for agitation, can be given SL (3) UTI (urinary tract infection) Current Visit: Yes Status: Acute Assessment and plan: On Unasyn day #4, Course to be completed today for uncomplicated UTI. Qualifiers: Urinary tract infection type: site unspecified Hematuria presence: without hematuria Qualified Code(s): N39.0 - Urinary tract infection, site not specified (4) Fecal impaction Current Visit: Yes Status: Acute Assessment and plan: Patient have had several big BM and loose stool. Abdomen is soft, no mass felt Imaging suspicious for possible colonic neoplasm, family was deemed unable to tolerate bowel prep for colonoscopy. Family declines any further workup. (5) JASON (acute kidney injury) Current Visit: Yes Status: Acute Assessment and plan: Probably due to dehydration. Resolved with IVF. Pt getting only minimal PO intake. - Time Spent With Patient Total time spent is greater than 50% in coordination of care (as documented) at patient's floor/unit and/or counseling patient: 25 - 35 minutes - Subjective Interval history: Patient remains drowsy this morning, responsive to tactile stimuli by moving his limbs and mouth. Daughter present at the bedside, states pt was more alert and awake yesterday afternoon, and accepted few bites of food. Counseled her about risk of aspiration and assuring that pt is alert enough before attempting feeding. Pt was evaluated by [employer] and cleared for soft diet with thin liquids. - Constitutional Vitals: Abnormal lab results RBC 3.81 M/mcL (4.19-5.50) L 09/06/18 04:35 Hgb 10.9 g/dL (12.9-16.9) L 09/06/18 04:35 Hct 32.0 % (37.5-50.1) L 09/06/18 04:35 Band Neutrophils % 26.0 % (0-4) H 09/03/18 06:09 Polychromasia 1+ (Not Present) A 09/02/18 03:21 Microcytosis Present (Not Present) A 09/02/18 03:21 APTT 40.7 Seconds (26.0-36.0) H 09/01/18 21:28 ABG pH 7.47 pH Units (7.32-7.45) H 09/01/18 20:56 ABG pO2 70 mmHg (85-104) L 09/01/18 20:56 ABG HCO3 29 mEq/L (21-27) H 09/01/18 20:56 ABG Total CO2 30 mEq/L (20-26) H 09/01/18 20:56 ABG Base Excess 5 mEq/L (-2 to 3) H 09/01/18 20:56 Potassium 3.2 mEq/L (3.5-5.1) L 09/07/18 03:45 Chloride 111 mEq/L (98-107) H 09/07/18 03:45 Glucose 117 mg/dL (70-105) H 09/07/18 03:45 POC Glucose 107 mg/dL (70-99) H 09/06/18 11:18 Calcium 7.4 mg/dL (8.6-10.3) L 09/07/18 03:45 Direct Bilirubin 0.4 mg/dL (0.0-0.2) H 09/01/18 21:28 AST 41 Units/L (13-39) H 09/01/18 21:28 Troponin I 0.06 ng/mL (< 0.04) H* 09/02/18 10:40 B-Natriuretic Peptide 134 pg/mL (Less than 100) H 09/01/18 21:28 Urine Color Kenzie (Yellow) A 09/01/18 20:42 Urine Clarity Turbid (Clear) A 09/01/18 20:42 Ur Specific [place] > 1.030 (1.010-1.025) H 09/01/18 20:42 Urine Protein 100 mg/dL (Neg-Trace) H 09/01/18 20:42 Urine Ketones Trace mg/dL (Negative) H 09/01/18 20:42 Urine Blood Moderate (Negative) H 09/01/18 20:42 Urine Nitrite Positive (Negative) A 09/01/18 20:42 Urine Bilirubin Moderate (Negative) H 09/01/18 20:42 Ur Leukocyte Esterase Small (Negative) H 09/01/18 20:42 Urine Microscopic RBC 3-5 per hpf (0-3) H 09/01/18 20:42 Urine Microscopic WBC 15-30 per hpf (0-3) H 09/01/18 20:42 Ur Squamous Epith Cells Many per lpf (None-Few) H 09/01/18 20:42 Urine Bacteria Many per hpf (None-Few) H 09/01/18 20:42 Granular Casts Many per lpf (None Seen) H 09/01/18 20:42 Ur Culture Indicated? NO. (NO) A 09/01/18 20:42 Exam: General appearance: cachetic, lethargic, in no acute distress Eyes: nonicteric, Neck: supple, no lymphadenopathy, no JVD Chest: bilateral: normal breath sounds, normal effort Cardiovascular: regular rate and rhythm Gastrointestinal: soft, non-tender, non-distended Integumentary: normal Extremities: no cyanosis, no edema, no clubbing Musculoskeletal: contracted at knees and elbows, no edema Neurologic: moaning, not opening eyes. Palliative Quality Palliative Quality: Screen for Code Status: Yes, Screen for Goals of Care: Yes, Screen for Pain: Yes, If Pain Regimen Started, Initiate Bowel Regimen: Yes, Screen for Nausea/Vomitting: Yes Code Status: 09/01/18 21:55 CODE [Resuscitation Status: Active] [RES] Stat Comment: no CPR, no intubation. Resuscitation Status: [id number] - Labs CBC & Chem 7: 09/06/18 04:35 09/07/18 03:45 Labs: Laboratory Results - last 24 hr 09/05/18 09/06/18 09/06/18 23:57 11: 14:34 Sodium Potassium Chloride Carbon Dioxide BUN Creatinine Est GFR ( Amer) Est GFR (Non-Af Amer) BUN/Creatinine Ratio Glucose POC Glucose 122 H 107 H Calculated Osmolality Calcium Magnesium 2.0 09/07/18 03:45 Sodium 144 Potassium 3.2 L Chloride 111 H Carbon Dioxide 27 BUN 10 Creatinine 0.76 Est GFR ( Amer) > 60 Est GFR (Non-Af Amer) > 60 BUN/Creatinine Ratio 13 Glucose 117 H POC Glucose Calculated Osmolality 298 Calcium 7.4 L Magnesium - ABG Interpretation ABG results: ABG ABG pH 7.47 pH Units (7.32-7.45) H 09/01/18 20:56 ABG pCO2 40 mmHg (35-45) 09/01/18 20:56 ABG pO2 70 mmHg (85-104) L 09/01/18 20:56 ABG O2 Saturation 95 % (95-98) 09/01/18 20:56 PT/INR, D-dimer PT 11.9 Seconds (9.4-12.1) 09/01/18 21:28 Palliative Scale - Palliative Performance Scale How ambulatory is this patient?: Totally bed bound What is patient's level of activity and evidence of disease?: Unable to do any activity, Extensive disease How much self-care assistance does patient require?: Total care How much oral intake does the patient have?: Minimal to sips What is this patient's level of consciousness?: Full or drowsy with or without confusion Palliative Performance Score: 30 % Consult Discharge Plan - Plan Referrals: NONE,PCP [Primary Care Provider] - (Family said they would find patient at doctor) Prescriptions: Acetaminophen [Tylenol 650mg SUPP] 650 mg RC Q6HR PRN 3 Days supp.rect PRN Reason: Pain Bisacodyl [Dulcolax] 10 mg RC HS PRN 3 Days supp.rect PRN Reason: Constipation
[2018-09-07] MEDS: Lactobacillus 1 EACH CAP.SPRINK PO SCH (10:12)
[2018-09-07] MEDS: MOM Conc 10 ML UD.LIQ PO SCH (10:13)
[2018-09-07] MEDS: OLANZapine 5 MG TAB.RAPDIS PO SCH (10:14)
--- NOTE | 2018-09-07 10:41 | Discharge Summary ---
- NOTES TO OUTPATIENT PROVIDER Notes to Outpatient Provider: Patient finished course of antibiotics for aspiration pneumonia. Per family wish discharge to home with home hospice. Date of Encounter: 09/07/18 Time of Encounter: 10:38 - Discharge Diagnosis (1) Alzheimer's dementia with behavioral disturbance Priority: Secondary Status: Acute Qualifiers: Alzheimer's disease onset: late-onset Qualified Code(s): G30.1 - Alzheimer's disease with late onset; F02.81 - Dementia in other diseases classified elsewhere with behavioral disturbance (2) UTI (urinary tract infection) Priority: Secondary Status: Acute Qualifiers: Urinary tract infection type: site unspecified Hematuria presence: without hematuria Qualified Code(s): N39.0 - Urinary tract infection, site not specified (3) Pneumonia Priority: Primary Status: Acute Qualifiers: Pneumonia type: aspiration pneumonia Laterality: unspecified laterality Lung location: unspecified part of lung Qualified Code(s): J69.0 - Pneumonitis due to inhalation of food and vomit (4) Fecal impaction Priority: Primary Status: Acute (5) Sepsis Priority: Primary Status: Acute Qualifiers: Sepsis type: sepsis due to unspecified organism Qualified Code(s): A41.9 - Sepsis, unspecified organism (6) Hypoxia Priority: Primary Status: Acute (7) Elevated troponin Priority: Primary Status: Acute (8) Hypernatremia Priority: Secondary Status: Acute (9) Dehydration Priority: Secondary Status: Acute (10) JASON (acute kidney injury) Priority: Secondary Status: Acute (11) Diverticulitis Priority: Secondary Status: Acute (12) Goals of care, counseling/discussion Priority: Secondary Status: Acute Hospital course: Mr. Ozuna is a 78 year old male with past medical history of Alzheimer dementia who came in with complain of fevers and productive cough decreased oral intake for 2-3 days. Patient was found to have severe sepsis with CT abdomen showing fecal impaction with possible mass in sigmoid colon. Patient was resuscitated and started on broad-spectrum antibiotics namely vancomycin and Zosyn. Patient was treated for JASON and hypernatremia with IV fluids. Patient was treated empirically for possible pneumonia and UTI. Patient had an enema which disimpacted and patient had large bowel movement. Patient's elevated troponin were adynamic and likely related to demand ischemia along with a KI. Given patient's severe dementia and overall poor quality of life palliative care were consulted. After discussion with family was decided to finish course of antibiotics for the patient and then discharge patient to home hospice. Patient hemodynamically improved. Unclear patient's baseline mental status however currently patient not responding to verbal stimuli and opening highly spontaneously and not following commands. Patient had finished 7 days of antibiotics today and family wishes to take him home with home hospice. Patient would be discharged today to home with home hospice. Discharge discussed with: patient, family, nurse, social work, case management, merchandising consultant (42) - Time Spent with Patient Total time spent providing and/or coordinating discharge services: Greater than 30 minutes (38) - Discharge Medications Prescriptions: Acetaminophen [Tylenol 650mg SUPP] 650 mg RC Q6HR PRN 3 Days supp.rect PRN Reason: Pain Bisacodyl [Dulcolax] 10 mg RC HS PRN 3 Days supp.rect PRN Reason: Constipation Home Medications: Acetaminophen [Tylenol 650mg SUPP] 650 mg RC Q6HR PRN 3 Days supp.rect 09/07/18 [Rx] Bisacodyl [Dulcolax] 10 mg RC HS PRN 3 Days supp.rect 09/07/18 [Rx] Allergies/Adverse Reactions: Allergy/AdvReac Type Severity Reaction Status Date / Time No Known Allergies Allergy Verified 03/29/17 12:40 Date of admission: 09/02/18 05:00 Primary care physician: PCP NONE Consults: 09/02/18 00:42 Consult to Nutrition [CONS] Routine Comment: underweight Consulting Provider: NUTRITION Reason for Dietary Consult: PO Supplementation 09/02/18 01:36 Consult to Pastoral Services [CONS] Routine Comment: 09/02/18 03:04 Consult to Admissions Director [CONS] Routine Reason for SW Consult: Discharge needs 09/05/18 13:43 Consult to Palliative Care [CONS] Routine Comment: Consulting Provider: Palliative Care Jessica Reason for Consult: Severe dementia, poor intake, goal of care Call Completed: Yes Discharging clinician: Sarah Feliz - Constitutional Vitals: Temp Pulse Resp BP Pulse Ox 97.9 F 66 18 119/73 95 09/07/18 07:21 09/07/18 08:30 09/07/18 07:21 09/07/18 07:21 09/07/18 07:21 General appearance: Present: A&O X 0, mild distress, underweight. Absent: answers questions appropriately Exam: General: nonverbal, in no distress, thinly build Respiratory exam: Decreased breath sound b/l. no accessory muscle use, rales, rhonchi, wheezes Cardiovascular exam: RRR, +S1, +S2. no murmur, gallop, rubs. GI/Abdominal exam: Non-tender, Non-distended, soft, no peritoneal signs. Extremities exam: no pedal edema, warm, pulses palpable in b/l lower extremities. no calf tenderness Neurological exam: Non focal. React only to painful and verbal stimuli. Occasionally opens eye spontaneously. Bot following commands. - Patient Status Disposition: Hospice - Home Condition: Serious - Discharge Instructions Follow Up With: NONE,PCP [Primary Care Provider] - (Family said they would find patient at doctor) Forms: Work/School Release
--- NOTE | 2018-09-07 10:50 | Physician Discharge Referral ---
Home Health/Hosp Referral Info Transfer to: Home Health, Hospice - Diagnosis (1) Alzheimer's dementia with behavioral disturbance Status: Acute (2) UTI (urinary tract infection) Status: Acute (3) Pneumonia Status: Acute (4) Fecal impaction Status: Acute (5) Sepsis Status: Acute (6) Hypoxia Status: Acute (7) Elevated troponin Status: Acute (8) Hypernatremia Status: Acute (9) Dehydration Status: Acute (10) JASON (acute kidney injury) Status: Acute (11) Diverticulitis Status: Acute (12) Goals of care, counseling/discussion Status: Acute - Respiratory Orders Smoking Cessation: Smoking cessation has been advised. For more information, call the [place] Tobacco Quit Line at 8-470-CDLSNOW. - Diet/Nutrition Diet/Nutrition Orders: Pureed - Transfer Medications Prescriptions: Acetaminophen [Tylenol 650mg SUPP] 650 mg RC Q6HR PRN 3 Days supp.rect PRN Reason: Pain Bisacodyl [Dulcolax] 10 mg RC HS PRN 3 Days supp.rect PRN Reason: Constipation Home Medications: Acetaminophen [Tylenol 650mg SUPP] 650 mg RC Q6HR PRN 3 Days supp.rect 09/07/18 [Rx] Bisacodyl [Dulcolax] 10 mg RC HS PRN 3 Days supp.rect 09/07/18 [Rx] Allergies/Adverse Reactions: Allergy/AdvReac Type Severity Reaction Status Date / Time No Known Allergies Allergy Verified 03/29/17 12:40 Certification: Further, I certify that my clinical findings support that this patient is homebound (i.e. absences from home require considerable and taxing effort and are for medical reasons or christianity services or infrequently or short duration when for other reasons) because: Homebound Reason: Patient requires assistance of a person or device to safely leave home Attestation: My signature below is to certify that this patient is under my care and that I, or nurse practitioner, or a physician's plumber's assistant working with me, has a [id number] encounter with this patient.
[2018-09-07 16:51] VITALS: BP 115/78
== END 2018-09-07 18:30 | disposition hospice, home (50) | DRG 871 ==
LOC: 2NNU 20:08 → EMEROOARM 20:08 → 2NNU 23:20 → SUATTDRO 09-02 05:00
PROVIDERS: ADMIT Internal Medicine; ATTEND Internal Medicine